=== PATIENT | female | born 1935 | race Caucasian/White ===

== ENCOUNTER 2018-09-05 16:14 | Outpatient (REF) | payer MEDICARE, MEDICAID, SELFPAY ==
[2018-09-05 18:41] LABS: HCT 40.5 % (36.0-46.0); HGB 12.9 g/dL (12.0-15.5); Mean Corp. HGB Concentration 31.9 g/dL (32.0-36.0); Mean Corpuscular Hemoglobin 28.7 pg (27.0-33.0); Mean Corpuscular Volume 90.2 fL (80-95); Mean Platelet Volume 10.1 fL (8.0-11.0); Platelet Count 271 x1000/uL (130-400); RBC 4.49 m/cumm (4.00-5.20); RBC Distribution Width 15.2 % (11.7-14.6); White Blood Cell Count 5.67 k/cumm (4.4-10.8)
[2018-09-05 18:48] LABS: Albumin 3.5 g/dL (3.4-5.0); BUN 24 mg/dL (7-18); CREATININE 0.82 mg/dL (0.55-1.02); Calcium 9.2 mg/dL (8.5-10.1); Chloride 104 mmol/L (98-107); Glucose 79 mg/dL (70-100); PHOSPHORUS 4.4 mg/dL (2.6-4.7); Potassium 4.4 mmol/L (3.5-5.1); Sodium 139 mmol/L (136-145)
[2018-09-10 08:37] LABS: 25-Hydroxy D Total 59 ng/mL; 25-Hydroxy D2 <4.0 ng/mL; 25-Hydroxy D3 59 ng/mL
== END 2018-09-05 16:34 ==
LOC: NCHCN 16:14
PROVIDERS: PCP Internal Medicine; Visit Provider Internal Medicine
DX: M65.4 Radial styloid tenosynovitis [de Quervain] (principal); M84.750A Atypical femoral fracture, unspecified, initial encounter for fracture; G62.9 Polyneuropathy, unspecified; M81.0 Age-related osteoporosis without current pathological fracture
CPT/HCPCS: 80069; 82306; 85027

== ENCOUNTER 2020-05-11 18:03 | Outpatient (REF) | payer MEDICARE, MEDICAID, SELFPAY ==
[2020-05-11 21:40] LABS: HCT 43.4 % (36.0-46.0); HGB 14.2 g/dL (11.2-15.7); MCH 31.5 pg (27.0-33.0); MCHC 32.7 % (32.0-36.0); MCV 96.2 fL (80-95); MPV 10.4 fL (8.0-11.0); Platelet Count 296 10^3/uL (130-400); RBC 4.51 10^6/uL (3.93-5.22); RDW 12.6 % (11.7-14.6); RDW-SD 44.8 fL
[2020-05-11 22:01] LABS: Albumin 3.8 g/dL (3.4-5.0); Anion Gap 8.6 mmol/L (3-11); BUN 25 mg/dL (7-18); CO2 27.4 mmol/L (21.0-32.0); CREATININE 0.97 mg/dL (0.55-1.02); Calcium 9.5 mg/dL (8.5-10.1); Chloride 106 mmol/L (98-107); Estimated GFR 54.71 (mL/min/1.73m2); Glucose 81 mg/dL (74-106); Magnesium 2.3 mg/dL (1.8-2.4); PHOSPHORUS 4.4 mg/dL (2.6-4.7); Potassium 4.5 mmol/L (3.5-5.1); Sodium 142 mmol/L (136-145); TSH 1.05 uIU/mL (0.36-3.74)
== END 2020-05-11 18:23 ==
LOC: NCHCN 18:03
PROVIDERS: PCP Internal Medicine; Visit Provider Internal Medicine
DX: G31.84 Mild cognitive impairment of uncertain or unknown etiology (principal); N32.81 Overactive bladder; M54.5 Low back pain; M21.069 Valgus deformity, not elsewhere classified, unspecified knee
CPT/HCPCS: 80069; 85027; 83735; 84443

== ENCOUNTER 2021-06-02 16:48 | Outpatient (REF) | payer MEDICARE, MEDICAID, SELFPAY | END 2021-06-02 16:49 | disposition home or self-care (01) | LOC: NCHCN 16:48 | PROVIDERS: PCP Internal Medicine; Visit Provider Internal Medicine | DX: R39.15 Urgency of urination (principal) | CPT/HCPCS: 87077; 87086; 87186 ==

== ENCOUNTER 2021-09-06 15:51 | Outpatient (REF) | payer MEDICARE, MEDICAID, SELFPAY | END 2021-09-06 15:52 | disposition home or self-care (01) | LOC: NCHCN 15:51 | PROVIDERS: PCP Internal Medicine; Visit Provider Physician Assistant | DX: R30.0 Dysuria (principal); N32.81 Overactive bladder | CPT/HCPCS: 87077; 87086; 87186 ==

== ENCOUNTER 2021-11-15 15:01 | Outpatient (REF) | payer MEDICARE, MEDICAID, SELFPAY ==
[2021-11-15 20:41] LABS: Abs Immature Grans 0.02 10^3/uL (0.0-0.06); Absolute Basophil Count 0.07 10^3/uL (0.0-0.2); Absolute Eosinophil Count 0.38 10^3/uL (0.0-0.7); Absolute Lymphocyte Count 1.39 10^3/uL (1.2-3.4); Absolute Monocyte Count 0.58 10^3/uL (0.1-0.8); Absolute Neutrophil Count 4.53 10^3/uL (1.2-6.7); Eosinophils % 5.5; HCT 43.6 % (36.0-46.0); HGB 14.3 g/dL (11.2-15.7); Immature Grans % 0.3; Lymphocytes % 19.9; MCHC 32.8 % (32.0-36.0); MCV 94.6 fL (80-95); MPV 11.2 fL (8.0-11.0); Monocytes % 8.3; Platelet Count 219 10^3/uL (130-400); RBC 4.61 10^6/uL (3.93-5.22); WBC 6.97 10^3/uL (4.4-10.8)
[2021-11-15 21:19] LABS: ALT 21 U/L (14-59); AST 17 U/L (15-37); Albumin 3.9 g/dL (3.4-5.0); Alkaline Phosphatase 117 U/L (46-116); BUN 30 mg/dL (7-18); Bilirubin, Total 0.3 mg/dL (0.2-1.0); CREATININE 1.1 mg/dL (0.55-1.02); Calcium 9.9 mg/dL (8.5-10.1); Chloride 108 mmol/L (98-107); Estimated GFR 47.21 (mL/min/1.73m2); Glucose 93 mg/dL (74-106); Potassium 4.6 mmol/L (3.5-5.1); Sodium 142 mmol/L (136-145); Total Protein 7.2 g/dL (6.4-8.2); Vitamin B12 1974 pg/mL (193-986)
[2021-11-16 07:22] LABS: Vitamin D 25 Total 127.1 ng/mL (30-100)
== END 2021-11-15 15:02 | disposition home or self-care (01) ==
LOC: NCHCN 15:01
PROVIDERS: PCP Internal Medicine; Visit Provider Internal Medicine
DX: R27.0 Ataxia, unspecified (principal); G31.84 Mild cognitive impairment of uncertain or unknown etiology; N32.81 Overactive bladder; E67.3 Hypervitaminosis D
CPT/HCPCS: 80053; 82306; 82607; 85025

== ENCOUNTER 2022-04-26 19:30 | Outpatient (REF) | payer MEDICARE, MEDICAID, SELFPAY ==
[2022-04-26 19:04] LABS: Abs Immature Grans 0.01 10^3/uL (0.0-0.06); Absolute Basophil Count 0.08 10^3/uL (0.0-0.2); Absolute Eosinophil Count 0.38 10^3/uL (0.0-0.7); Absolute Lymphocyte Count 1.06 10^3/uL (1.2-3.4); Absolute Neutrophil Count 3.14 10^3/uL (1.2-6.7); Basophils % 1.5; Eosinophils % 7.4; HCT 44.1 % (36.0-46.0); HGB 14.9 g/dL (11.2-15.7); Immature Grans % 0.2; Lymphocytes % 20.5; MCH 32.6 pg (27.0-33.0); MCHC 33.8 % (32.0-36.0); MCV 97 fL (80-95); MPV 9.9 fL (8.0-11.0); Monocytes % 9.7; Neutrophils % 60.7; Platelet Count 304 10^3/uL (130-400); RBC 4.57 10^6/uL (3.93-5.22); RDW 12.3 % (11.7-14.6); RDW-SD 43.5 fL; WBC 5.17 10^3/uL (4.4-10.8)
[2022-04-26 19:26] LABS: ALT 22 U/L (14-59); AST 16 U/L (15-37); Albumin 3.7 g/dL (3.4-5.0); Alkaline Phosphatase 106 U/L (46-116); Anion Gap 6.5 mmol/L (3-11); BUN 26 mg/dL (7-18); Bilirubin, Total 0.4 mg/dL (0.2-1.0); CO2 29.5 mmol/L (21.0-32.0); CREATININE 0.9 mg/dL (0.55-1.02); Calcium 9.7 mg/dL (8.5-10.1); Chloride 106 mmol/L (98-107); Estimated GFR 62.26 (mL/min/1.73m2); Glucose 88 mg/dL (74-106); Potassium 4.8 mmol/L (3.5-5.1); Sodium 142 mmol/L (136-145); TSH (W/Ref FT4) 0.93 uIU/mL (0.36-3.74)
== END 2022-04-26 19:31 | disposition home or self-care (01) ==
LOC: NCHCN 19:30
PROVIDERS: PCP Internal Medicine; Visit Provider Physician Assistant
DX: R06.09 Other forms of dyspnea (principal); R53.83 Other fatigue; E78.5 Hyperlipidemia, unspecified
CPT/HCPCS: 80053; 84443; 85025

== ENCOUNTER 2023-03-22 18:12 | Outpatient (REF) | payer MEDICARE, MEDICAID, SELFPAY ==
--- OUTSIDE RECORDS SUMMARY | 2023-03-22 18:14 | XMS_ITS | Continuity of Care Document ---
Author Name Unknown Organization [facility] Address [address] [place] [address] Care Team Providers Care Door To Door Selling Agent Name Role Phone [facility], Adalid Gaspar Primary Care Physician Encounter [facility] Date(s): 09/05/22 - 09/05/22 [facility] [address] [place] [address] Encounter Diagnosis Pain in shoulder(Discharge Diagnosis) - 09/05/22 Pain in hip(Discharge Diagnosis) - 09/05/22 Cardiomyopathy(Discharge Diagnosis) - 09/05/22 HTN (hypertension)(Discharge Diagnosis) - 09/05/22 Shoulder pain(Discharge Diagnosis) - 09/05/22 Discharge Disposition: Home or Self Care Attending Physician: Kathy Freedman DO Allergies, Adverse Reactions, Alerts Substance Reaction Severity Status tetanus-diphth toxoids (Td) adult/adol Un known Active Functional Status 09/05/22 Other exposure to Infectious Disease Non e Medications aspirin 81 mg oral tablet, chewable 81 mg = 1 tab, Oral, Daily, # 30 tab, 0 Refill(s), [facility]acy: [facility], 165, cm, 07/25/22 14:26:00 EST, Height/Length Dosing, 57.2, kg, 07/25/22 14:26:00 EST, Weight Dosing Start Date: 08/02/22 Status: Ordered atorvastatin 40 mg oral tablet 40 mg = 1 tab, Oral, With Evening Meal, # 30 tab, 0 Refill(s), Pharmacy: [facility], 165, cm, 07/25/22 14:26:00 EST, Height/Length Dosing, 57.2, kg, 07/25/22 14:26:00 EST, Weight Dosing Start Date: 08/02/22 Status: Ordered losartan 25 mg oral tablet 25 mg = 1 tab, Oral, every evening, 0 Refill(s) Start Date: 07/23/22 Status: Ordered metoprolol succinate 25 mg oral tablet, extended release 25 mg = 1 tab, Oral, Daily, # 30 tab, 0 Refill(s), Pharmacy: [facility], 165, cm, 07/25/22 14:26:00 EST, Height/Length Dosing, 57.2, kg, 07/25/22 14:26:00 EST, Weight Dosing Start Date: 08/02/22 Status: Ordered Minden-3 Fish Oil 1 cap, Oral, Daily, 0 Refill(s) Start Date: 07/26/22 Status: Ordered PreserVision AREDS 2 oral capsule 1 cap, Oral, BID, # 60 cap, 0 Refill(s) Start Date: 07/26/22 Status: Ordered Ventolin HFA 90 mcg/inh inhalation aerosol 2 puffs, Inhale, every 5 hr, PRN as needed for wheezing, 0 Refill(s) Start Date: 07/26/22 Status: Ordered Vitamin D3 1000 intl units oral tablet 62.5 mcg = 2.5 tab, Oral, Daily, # 30 tab, 0 Refill(s) Start Date: 07/26/22 Status: Ordered Problem List Condition Confirmation Course Effective Dates Status Health St atus Informant Unspecified dementia, mild, with anxiety Confirmed Active NSTEMI (non-ST elevated myocardial infarction) Confirmed Active Vital Signs Most recent to oldest [Reference Range]: 1 Peripheral Pulse Rate [60-100 bpm] 93 bp m (09/05/22 1:16 PM) Blood Pressure [90-140/60-90 mmHg] 137/6 5mmHg (09/05/22 1:16 PM) Social History Social History Type Response Tobacco Former tobacco user Tobacco Use:. Sex Female Cardiac catheterization study * Event Display: Electro Mechanic US Heart * Event Display: Echo Report Physician Outpatient Note * Kathy Freedman DO: PERFORM Event Display: Office Clinic Note Physician Authored Date: [id number] PABLO ZIMMER :1935 Age:87 years Sex:Female Visit Date:09/05/2022 Primary Care Physician: Mirna [facility], Adalid Gaspar MD Chief Complaint Patient is here to follow up. History of Present Illness Patient is 87 year old female that was seen in the ER.?? Patient had a LHC at [facility] and showed no stents needed.?? 3 days later patient had a stroke.?? Now patient is in a [facility] for [facility].?? Prior to this patient was independent living.?? Patient is unable to move her left arm because she fell out of bed at [facility].?? Patient has not been evaluated for this fall.?? Review of Systems Constitutional:?No??fevers,?No??chills,?No??sweats Eye:?No??recent visual problems ENT:?No??ear pain,?No??nasal congestion,?No??sore throat Respiratory:?No??shortness of breath,?No??cough Cardiovascular:?No??Chest pain,?No??palpitations,?No??syncope Gastrointestinal:?Nonausea,?No??vomiting,?No??diarrhea Genitourinary:?No??hematuria Behzad/Lymph:?No??bruising tendency,?No??swollen lymph glands Endocrine:?No??excessive thirst,??No??excessive hunger Musculoskeletal:??Positive for??back pain,??No??neck pain,??No??joint pain,??No??muscle pain,??Positive for??decreased range of motion LUE Integumentary:?No??rash,?No??pruritus,?No??abrasions Neurologic: Alert & oriented X 4 Psychiatric:?No??anxiety,?No??depression Physical Exam Vitals & Measurements HR:??93??(Peripheral)?? BP:??137/65?? SpO2:??96%?? General: Alert and oriented, well nourished,?No??acute distress Eye: PERRL, EOMI,?Normal??conjunctiva HENT: Normocephalic, clear tympanic membranes,?Normal?? hearing, moist oral mucosa,?No??scleral icterus,?No??sinus tenderness Neck: Supple, non-tender,?No??carotid bruits,?No??JVD,?No??lymphadenopathy Lungs: Clear to auscultation and percussion,?Non-labored?? respiration Heart:?Normal?? rate,?Regular??rhythm,?No??murmur,?No??gallop,?No??edema Breast:?No??lumps,?No??bumps,?No??scars,?Normal?? nipples Abdomen: Soft, non-tender, non-distended,?Normal?? bowel sounds,?No??masses Musculoskeletal:?Abnormal?? range of motion and strength,?No??tenderness,?Positive for??swelling LUE Skin: Skin is warm, dry and pink,?No??rashes,?No??lesions Neurologic: Awake, alert and oriented X4, CN II-XII intact Psychiatric: Cooperative, appropriate mood and affect Assessment/Plan 1.??Pain in shoulder??M25.519 1. xray shoulder Ordered: XR Shoulder Complete 2+ Views Left, 09/05/22, Routine, Reason: fall, Transport Mode: Ambulatory, Hip pain Shoulder pain, Exam to be performed outside organization? ?? 2.??Pain in hip??M25.559 1. xray hip left Ordered: XR Hip 1 View w/ AP Pelvis Left, 09/05/22, Routine, Reason: fall, Transport Mode: Ambulatory, Hip pain, ABN Status: Not Required, Exam to be performed outside organization? XR Shoulder Complete 2+ Views Left, 09/05/22, Routine, Reason: fall, Transport Mode: Ambulatory, Hip pain Shoulder pain, Exam to be performed outside organization? ?? 3.??Cardiomyopathy??I42.9 1. continue present medicines ?? 4.??HTN (hypertension)??I10 1. continue present medicines ?? Future Orders XR Hip 1 View w/ AP Pelvis Left, 09/05/22, Routine, Reason: fall, Transport Mode: Ambulatory, Hip pain, ABN Status: Not Required, Exam to be performed outside organization? XR Shoulder Complete 2+ Views Left, 09/05/22, Routine, Reason: fall, Transport Mode: Ambulatory, Hip pain Shoulder pain, Exam to be performed outside organization? Problem List/Past Medical History Ongoing NSTEMI (non-ST elevated myocardial infarction) Unspecified dementia, mild, with anxiety Historical No qualifying data Medications aspirin 81 mg oral tablet, chewable, 81 mg= 1 tab, Oral, Daily atorvastatin 40 mg oral tablet, 40 mg= 1 tab, Oral, With Evening Meal losartan 25 mg oral tablet, 25 mg= 1 tab, Oral, every evening metoprolol succinate 25 mg oral tablet, extended release, 25 mg= 1 tab, Oral, Daily Minden-3 Fish Oil, 1 cap, Oral, Daily PreserVision AREDS 2 oral capsule, 1 cap, Oral, BID Ventolin HFA 90 mcg/inh inhalation aerosol, 2 puffs, Inhale, every 5 hr, PRN Vitamin D3 1000 intl units oral tablet, 62.5 mcg= 2.5 tab, Oral, Daily Allergies tetanus-diphth toxoids (Td) adult/adol Social History Alcohol Current, Wine, Daily Electronic Cigarette/Vaping Electronic Cigarette Use: Never. Tobacco Former tobacco user Tobacco Use:. Electronically Signed on 09/05/22 02:59 PM Kathy Freedman DO Discharge summary * Event Display: Discharge Summary Patient Care team information Personnel Name: Mirna SHEA, Adalid Gaspar MD Address: Address: [address] [address]- [place]
--- OUTSIDE RECORDS SUMMARY | 2023-03-22 18:14 | XMS_ITS | Continuity of Care Document ---
Author Name Unknown Organization [facility] Address [address] [place] [address] Care Team Providers Care Open Hearth Helper Name Role Phone Primeau HCAdalid Primary Care Physician Encounter [facility] Date(s): 10/18/22 - 10/18/22 [facility] [address] [place] [address] Encounter Diagnosis Unspecified dementia, mild, with anxiety(Discharge Diagnosis) - 10/18/22 Hyperlipidemia(Discharge Diagnosis) - 10/18/22 Hypertension(Discharge Diagnosis) - 10/18/22 Discharge Disposition: Home or Self Care Attending Physician: Kathy Freedman DO Allergies, Adverse Reactions, Alerts Substance Reaction Severity Status tetanus-diphth toxoids (Td) adult/adol Un known Active Medications aspirin 81 mg oral tablet, chewable 81 mg = 1 tab, Oral, Daily, # 90 tab, 3 Refill(s), Pharmacy: [facility], 165, cm, 07/25/22 14:26:00 EST, Height/Length Dosing, 57.2, kg, 07/25/22 14:26:00 EST, Weight Dosing Start Date: 10/18/22 Status: Ordered atorvastatin 40 mg oral tablet 40 mg = 1 tab, Oral, With Evening Meal, # 90 tab, 3 Refill(s), Pharmacy: [facility], 165, cm, 07/25/22 14:26:00 EST, Height/Length Dosing, 57.2, kg, 07/25/22 14:26:00 EST, Weight Dosing Start Date: 10/18/22 Status: Ordered losartan 25 mg oral tablet 25 mg = 1 tab, Oral, Daily, # 90 tab, 3 Refill(s), Pharmacy: [facility], 165, cm, 07/25/22 14:26:00 EST, Height/Length Dosing, 57.2, kg, 07/25/22 14:26:00 EST, Weight Dosing Start Date: 10/18/22 Status: Ordered metoprolol succinate 25 mg oral tablet, extended release 25 mg = 1 tab, Oral, BID, # 180 tab, 3 Refill(s), Pharmacy: [facility], 165, cm, 07/25/22 14:26:00 EST, Height/Length Dosing, 57.2, kg, 07/25/22 14:26:00 EST, Weight Dosing Start Date: 10/18/22 Status: Ordered Raven-3 Fish Oil 1 cap, Oral, Daily, 0 [...] Range]: 1 Peripheral Pulse Rate [60-100 bpm] 73 bp m (10/18/22 10:46 AM) Blood Pressure [90-140/60-90 mmHg] 128/6 6mmHg (10/18/22 10:46 AM) Social History Social History Type Response Tobacco Former tobacco user Tobacco Use:. Sex Female Physician Outpatient Note * Kathy Freedman DO: PERFORM Event Display: Office Clinic Note Physician Authored Date: [id number] PABLO ZIMMER :1935 Age:87 years Sex:Female Visit Date:10/18/2022 Primary Care Physician: Mirna [facility], Adalid Gaspar MD Chief Complaint Patient is here for follow up evaluation. History of Present Illness Patient is here for follow up evaluation.?? Patient is only complaining of back pain.?? Patient is still in the shelter and is frustrated with that.?? Review of Systems Constitutional:?No??fevers,?No??chills,?No??sweats, + back pain Eye:?No??recent visual problems ENT:?No??ear pain,?No??nasal congestion,?No??sore throat Respiratory:?No??shortness of breath,?No??cough Cardiovascular:?No??Chest pain,?No??palpitations,?No??syncope Gastrointestinal:?Nonausea,?No??vomiting,?No??diarrhea Genitourinary:?No??hematuria Behzad/Lymph:?No??bruising tendency,?No??swollen lymph glands Endocrine:?No??excessive thirst,??No??excessive hunger Musculoskeletal:??No??back pain,??No??neck pain,??No??joint pain,??No??muscle pain,??No??decreased range of motion Integumentary:?No??rash,?No??pruritus,?No??abrasions Neurologic: Alert & oriented X 4 Psychiatric:?No??anxiety,?No??depression Physical Exam Vitals & Measurements HR:??73??(Peripheral)?? BP:??128/66?? SpO2:??95%?? General: Alert and oriented, well nourished,?No??acute distress Eye: PERRL, EOMI,?Normal??conjunctiva HENT: Normocephalic, clear tympanic membranes,?Normal?? hearing, moist oral mucosa,?No??scleral icterus,?No??sinus tenderness Neck: Supple, non-tender,?No??carotid bruits,?No??JVD,?No??lymphadenopathy Lungs:??Clear to auscultation?? Respiration:??Non-Labored Heart:?Normal?? rate,?Regular??rhythm,?No??murmur,?No??gallop,?No??edema Breast:?No??lumps,?No??bumps,?No??scars,?Normal?? nipples Abdomen: Soft, non-tender, non-distended,?Normal?? bowel sounds,?No??masses Musculoskeletal:?Normal?? range of motion and strength,?No??tenderness,?No??swelling Skin: Skin is warm, dry and pink,?No??rashes,?No??lesions Neurologic: Awake, alert and oriented X4, CN II-XII intact Psychiatric: Cooperative, appropriate mood and affect Assessment/Plan 1.??Unspecified dementia, mild, with anxiety??F03.A4 1. continue present medicines 2.??Hyperlipidemia??E78.5 1. continue present medicines 3.??Hypertension??I10 1. continue present medicines 2. follow up with cardiology in 6 months or sooner if needed Orders: aspirin 81 mg oral tablet, chewable, 81 mg = 1 tab, Oral, Daily, # 90 tab, 3 Refill(s), Pharmacy: [facility], 165, cm, 07/25/22 14:26:00 EST, Height/Length Dosing, 57.2, kg, 07/25/22 14:26:00 EST, Weight Dosing atorvastatin 40 mg oral tablet, 40 mg = 1 tab, Oral, With Evening Meal, # 90 tab, 3 Refill(s), Pharmacy: [facility], 165, cm, 07/25/22 14:26:00 EST, Height/Length Dosing, 57.2, kg, 07/25/22 14:26:00 EST, Weight Dosing losartan 25 mg oral tablet, 25 mg = 1 tab, Oral, Daily, # 90 tab, 3 Refill(s), Pharmacy: [facility], 165, cm, 07/25/22 14:26:00 EST, Height/Length Dosing, 57.2, kg, 07/25/22 14:26:00 EST, Weight Dosing metoprolol succinate 25 mg oral tablet, extended release, 25 mg = 1 tab, Oral, BID, # 180 tab, 3 Refill(s), Pharmacy: [facility], 165, cm, 07/25/22 14:26:00 EST, Height/Length Dosing, 57.2, kg, 07/25/22 14:26:00 EST, Weight Dosing Problem List/Past Medical History Ongoing NSTEMI (non-ST elevated myocardial infarction) Unspecified dementia, mild, with anxiety Historical No qualifying data Medications aspirin 81 mg oral tablet, chewable, 81 mg= 1 tab, Oral, Daily, 3 refills atorvastatin 40 mg oral tablet, 40 mg= 1 tab, Oral, With Evening Meal, 3 refills losartan 25 mg oral tablet, 25 mg= 1 tab, Oral, Daily, 3 refills metoprolol succinate 25 mg oral tablet, extended release, 25 mg= 1 tab, Oral, BID, 3 refills Raven-3 Fish Oil, 1 cap, Oral, Daily PreserVision [...] tobacco user Tobacco Use:. Electronically Signed on 10/18/22 11:11 AM Kathy Freedman DO Patient Care team information Care Team Personnel Name: Adalid Mckay MD Position: No Access Member Role: Primary Care Physician Address: Address: [address] Care Team Related Persons Name: KIMO MOISE Address: Home Name: SHONNA E[address]ON Address: Home Name: ABHISHEK JACKSON Name: BABITA ROGER Address: Home
--- OUTSIDE RECORDS SUMMARY | 2023-03-22 18:14 | XMS_ITS | Continuity of Care Document ---
Author Name Unknown Organization [facility] Address [address] [place] [address] Care Team Providers Care Sweeping Compound Blender Name Role Phone [facility], Adalid Gaspar Primary Care Physician Encounter [facility] Date(s): 09/05/22 - 09/05/[address] [address] Encounter Diagnosis Hip pain(Discharge Diagnosis) - 09/05/22 Shoulder pain(Discharge Diagnosis) - 09/05/22 Pain in unspecified hip(Discharge Diagnosis) - 09/05/22 Discharge Disposition: Home or Self Care Attending Physician: Kathy Freedman DO Admitting Physician: Kathy Freedman DO Referring Physician: Kathy Freedman DO Allergies, Adverse Reactions, [...] Daily, # 30 tab, 0 Refill(s), Pharmacy: [facility], 165, cm, 07/25/22 14:26:00 EST, Height/Length Dosing, 57.2, kg, 07/25/22 14:26:00 EST, Weight Dosing Start Date: 08/02/22 Status: Ordered Suitland-3 Fish Oil 1 cap, Oral, Daily, 0 [...] NSTEMI (non-ST elevated myocardial infarction) Confirmed Active Social History Social History Type Response Tobacco Former tobacco user Tobacco Use:. Sex Female Patient Care team information Personnel Name: Mirna SHEA, Adalid Gaspar MD Address: Address: [id number] [place] [address]
--- OUTSIDE RECORDS SUMMARY | 2023-03-22 18:14 | XMS_ITS | Continuity of Care Document ---
Author Name Unknown Organization [facility] Address [address] [place] [address] Care Team Providers Care Road Passenger Firer Name Role Phone Adalid Mckay Primary Care Physician Encounter [facility] Date(s): 05/17/22 - 05/17/[address] [address] Discharge Disposition: Home or Self Care Attending Physician: Kathy Freedman DO Admitting Physician: Kaleigh Sequeira Referring Physician: Kaleigh Sequeira Allergies, Adverse Reactions, Alerts Substance Reaction Severity Status tetanus-diphth toxoids (Td) adult/adol Un known Active Social History Social History Type Response Sex Female Patient Care team information Personnel Name: Adalid Mckay MD Address: Address: [facility] [address] [place], [place] [address]
--- OUTSIDE RECORDS SUMMARY | 2023-03-22 18:14 | XMS_ITS | Continuity of Care Document ---
Author Name Unknown Organization [facility] Address [address] [place] [address] Care Team Providers Care Table Games Floor Supervisor Name Role Phone [facility], Adalid Gaspar Primary Care Physician Encounter [facility] Date(s): 10/24/22 - 10/24/22 [facility] [address] [place] [address] Discharge Disposition: Home or Self Care Attending Physician: Giselle Hodgson MD Admitting Physician: Giselle Hodgson MD Referring Physician: Giselle Hodgson MD Allergies, Adverse Reactions, Alerts Substance Reaction Severity [...] BID, # 180 tab, 3 Refill(s), Pharmacy: [facility], 165, cm, 07/25/22 14:26:00 EST, Height/Length Dosing, 57.2, kg, 07/25/22 14:26:00 EST, Weight Dosing Start Date: 10/18/22 Status: Ordered Pinson-3 Fish Oil 1 cap, Oral, Daily, 0 [...] NSTEMI (non-ST elevated myocardial infarction) Confirmed Active Results Laboratory List Name Date Clostridium Difficile 10/24/22 Most recent to oldest [Reference Range]: 1 Clostridium Difficile Toxin [Negative] N egative (10/24/22 11:17 AM) Social History Social History Type Response Tobacco Former tobacco user Tobacco Use:. Sex Female Patient Care team information Care Team Personnel Name: Adalid Mckay MD Position: No Access Member Role: Primary Care Physician Address: Address: [id number] [place] [address] Care Team Related Persons Name: KIMO MOISE Address: Home Name: SHONNA EASTON Address: Home Name: ABHISHEK JACKSON Name: BABITA ROGER Address: Home
--- OUTSIDE RECORDS SUMMARY | 2023-03-22 18:14 | XMS_ITS | Continuity of Care Document ---
Author Name Unknown Organization [facility] Address [address] [place] [address] Care Team Providers Care Architectural Project Captain Name Role Phone [place] HCAdalid Primary Care Physician Encounter NCTY_HI Date(s): 07/25/22 - 08/02/22 [facility] [address] [place] [address] Encounter Diagnosis Acute ischemic right MCA stroke(Discharge Diagnosis) - 07/26/22 UTI (urinary tract infection)(Discharge Diagnosis) - 07/26/22 Atrial fibrillation with RVR(Discharge Diagnosis) - 07/26/22 Febrile(Discharge Diagnosis) - 07/26/22 NSTEMI (non-ST elevated myocardial infarction)(Discharge Diagnosis) - 07/26/22 Unspecified dementia, mild, with anxiety(Discharge Diagnosis) - 07/26/22 Cerebral infarction due to unspecified occlusion or stenosis of right middle cerebral artery(Final) - Non-ST elevation (NSTEMI) myocardial infarction(Final) - Urinary tract infection, site not specified(Final) - Rhabdomyolysis(Final) - Unspecified atrial fibrillation(Final) - Fever, unspecified(Final) - Encounter for administrative examinations, unspecified(Final) - Unspecified dementia, mild, with anxiety(Final) - [facility]charge Dis[facility] Attending Physician: Toby Cao DO Admitting Physician: Evie Baker NURSE ANESTHETIST Allergies, Adverse Reactions, Alerts Substance Reaction Severity Status tetanus-diphth toxoids (Td) adult/adol Un known Active Assessment and Plan Future Appointments Functional Status 08/02/22 Breakfast Percent 10 08/01/22 Personal Care Provided Diaper/Brief sandoval ged, Linen change, Vani care, Underpad change 07/31/22 Activity Status ADL Bed in chair positio n 07/29/22 Dinner Percent 25 07/29/22 Lunch Percent 75 07/27/22 Positioning/Pressure Reducing Devices Fo am wedge, Pillow Orthopedic/Preventive Devices Sling 07/27/22 Living Environment Living Situation: Ho me independently Current Home Treatments: Home Devices/Equipment Professional Skilled Services: Special Services and Community Resources: Sensory Deficits: Hearing deficit, left ear, Hearing deficit, right ear Performed by: Heather Zimmer07/26/22 08:06:00 Living Situation: Home independently Current Home Treatments: Home Devices/Equipment Professional Skilled Services: Special Services and Community Resources: Sensory Deficits: Performed by: Sunshine North07/25/22 15:21:00 Lives In Multilevel home Lives With Alone Living Situation Home independently Patient's Responsibilities Driving, business management manager, Health and wellness, Housework, Laundry, Meal preparation, Personal ADL, Shopping, Social participation Home Equipment Pulse oximeter, Walker, Other: BP Machine Number of Stairs Outside 2 07/26/22 Anti-Embolism Device Activity: Applied Anti-Embolism Site Condition: No complic ations 07/25/22 Family Member Travel History No recent t ravel Recent Travel History No recent travel Other exposure to Infectious Disease Non e [...] Weight Dosing Start Date: 08/02/22 Status: Ordered Hampton-3 Fish Oil 1 cap, Oral, Daily, 0 [...] 0 Refill(s) Start Date: 07/26/22 Status: Ordered Mental Status 07/27/22 Eye Opening Response Guera Spontaneous ly Best Verbal Response Dwarf Oriented Best Motor Response Guera Obeys comman ds Guera Coma Score 15 Problem List Condition Confirmation Course Effective Dates Status Health St atus Informant Unspecified dementia, mild, with anxiety Confirmed Active NSTEMI (non-ST elevated myocardial infarction) Confirmed Active Results Laboratory List Name Date SARS-CoV-2 (COVID-19) RNA (ID Now) 3 Automated Diff 07/27/22 Basic Metabolic Panel 07/27/22 CBC w/ Diff 07/27/22 Troponin-I 07/26/22 Automated Diff 07/26/22 Basic Metabolic Panel 07/26/22 CBC w/ Diff 07/26/22 Creatine Kinase (CK) 07/26/22 TSH w/ Rflx to Free T4 07/26/22 Magnesium Level 07/26/22 Troponin-I 07/26/22 Urinalysis Microscopic 07/25/22 Urinalysis with Micro if Indicated and C ulture if Indicated 07/25/22 Creatine Kinase 07/25/22 Troponin-I 07/25/22 SARS-CoV-2 (COVID-19) RNA (ID Now) 07/25 Glucose POCT 07/25/22 Glucose POCT 07/25/22 CBC w/o Diff 07/25/22 Comprehensive Metabolic Panel (CMP) 06/29 03/19 PT/ INR 07/25/22 PTT 07/25/22 Most recent to oldest [Reference Range]: 1 2 3 WBC [5.0-10.0 x10^3/mcL] 7.6 x10^3/mcL (07/27/22 6:45 AM) 10.2 x10^3/mcL *HI* (07/26/22 7:00 AM) 10.4 x10^3/mcL *HI* (07/25/22 11:00 AM) RBC [4.1-5.3 x10^6/mcL] 3.8 x10^6/mcL *LOW* (07/27/22 6:45 AM) 3.8 x10^6/mcL *LOW* (07/26/22 7:00 AM) 4.5 x10^6/mcL (07/25/22 11:00 AM) Neutro Auto [40.0-75.0 %] 65.5 % (07/27/22 6:45 AM) 72.5 % (07/26/22 7:00 AM) Lymph Auto [20.0-50.0 %] 19.3 % *LOW* (07/27/22 6:45 AM) 15.3 % *LOW* (07/26/22 7:00 AM) Greer Auto [2.0-15.0 %] 8.3 % (07/27/22 6:45 AM) 11.4 % (07/26/22 7:00 AM) Basophil Auto [0.0-1.0 %] 0.7 % (07/27/22 6:45 AM) 0.3 % (07/26/22 7:00 AM) Prothrombin Time [9.0-11.0 seconds] 9.8 seconds (07/25/22 11:00 AM) INR 1.0 *NA* (07/25/22 11:00 AM) BUN [7-18 mg/dL] 28 mg/dL *HI* (07/27/22 6:45 AM) 29 mg/dL *HI* (07/26/22 7:00 AM) 28 mg/dL *HI* (07/25/22 11:00 AM) Glucose POC [74-106 mg/dL] 131 mg/dL *HI* (07/25/22 11:03 AM) 131 mg/dL *HI* (07/25/22 11:01 AM) UA Color Yellow (07/25/22 8:20 PM) UA WBC [0-3] 0-3 (07/25/22 8:20 PM) Glucose Level [74-106 mg/dL] 93 mg/dL (07/27/22 6:45 AM) 108 mg/dL *HI* (07/26/22 7:00 AM) 126 mg/dL *HI* (07/25/22 11:00 AM) Potassium Level [3.5-5.1 mmol/L] 3.8 mmol/L (07/27/22 6:45 AM) 4.0 mmol/L (07/26/22 7:00 AM) 4.6 mmol/L (07/25/22 11:00 AM) MCV [80.0-96.0] 100.0 *HI* (07/27/22 6:45 AM) 99.5 *HI* (07/26/22 7:00 AM) 98.0 *HI* (07/25/22 11:00 AM) UA Urobilinogen Normal (07/25/22 8:20 PM) UA Bili [Negative] Negative (07/25/22 8:20 PM) UA Ketones 2+ *ABN* (07/25/22 8:20 PM) AST [15-37 unit/L] 24 unit/L (07/25/22 11:00 AM) ALT [14-59 unit/L] 16 unit/L (07/25/22 11:00 AM) MCHC [31.0-35.0 g/dL] 31.9 g/dL (07/27/22 6:45 AM) 32.5 g/dL (07/26/22 7:00 AM) 33.0 g/dL (07/25/22 11:00 AM) Troponin-I [0.0-51.4 pg/mL] 456.0 pg/mL 1 *CRIT* (07/26/22 9:22 AM) 676.1 pg/mL 2 *CRIT* (07/26/22 3:12 AM) 795.2 pg/mL 3 *CRIT* (07/25/22 7:50 PM) Sodium Level [136-145 mmol/L] 140 mmol/L (07/27/22 6:45 AM) 141 mmol/L (07/26/22 7:00 AM) 140 mmol/L (07/25/22 11:00 AM) UA RBC [0-2] 0-2 (07/25/22 8:20 PM) UA Leuk Est Negative (07/25/22 8:20 PM) UA Nitrite Positive *ABN* (07/25/22 8:20 PM) UA Glucose [Negative] Negative (07/25/22 8:20 PM) Hct [37.0-47.0 %] 37.6 % (07/27/22 6:45 AM) 38.1 % (07/26/22 7:00 AM) 43.7 % (07/25/22 11:00 AM) UA Bacteria Moderate /HPF *ABN* (07/25/22 8:20 PM) Partial Thromboplastin Time [22-35 seconds] 25 seconds (07/25/22 11:00 AM) Calcium Level [8.5-10.1 mg/dL] 8.1 mg/dL *LOW* (07/27/22 6:45 AM) 8.4 mg/dL *LOW* (07/26/22 7:00 AM) 9.6 mg/dL (07/25/22 11:00 AM) Albumin Level [3.4-5.0 g/dL] 3.4 g/dL (07/25/22 11:00 AM) Protein Total [6.4-8.2 g/dL] 7.6 g/dL (07/25/22 11:00 AM) UA Protein 1+ *ABN* (07/25/22 8:20 PM) MCH [26.0-32.0 pg] 31.9 pg (07/27/22 6:45 AM) 32.4 pg *HI* (07/26/22 7:00 AM) 32.3 pg *HI* (07/25/22 11:00 AM) Magnesium Level [1.8-2.4 mg/dL] 2.0 mg/dL (07/26/22 3:26 AM) Neutro Absolute 5.0 x10^3/mcL *NA* (07/27/22 6:45 AM) 7.4 x10^3/mcL *NA* (07/26/22 7:00 AM) Bilirubin Total [0.2-1.0 mg/dL] 0.7 mg/dL (07/25/22 11:00 AM) Hgb [12.0-16.0 g/dL] 12.0 g/dL (07/27/22 6:45 AM) 12.4 g/dL (07/26/22 7:00 AM) 14.4 g/dL (07/25/22 11:00 AM) Alk Phos [46-146 unit/L] 91 unit/L (07/25/22 11:00 AM) UA Blood 2+ *ABN* (07/25/22 8:20 PM) UA Mucous None Seen /HPF (07/25/22 8:20 PM) UA Spec Grav 1.020 (07/25/22 8:20 PM) Platelets [130-450 x10^3/mcL] 205 x10^3/mcL (07/27/22 6:45 AM) 221 x10^3/mcL (07/26/22 7:00 AM) 265 x10^3/mcL (07/25/22 11:00 AM) CO2 [21-32 mmol/L] 23 mmol/L (07/27/22 6:45 AM) 24 mmol/L (07/26/22 7:00 AM) 25 mmol/L (07/25/22 11:00 AM) UA Squam Epithelial [None Seen] Rare (07/25/22 8:20 PM) TSH [0.358-3.740 mcIntlUnit/mL] 0.450 mcIntlUnit/mL (07/26/22 7:00 AM) UA pH 5.5 (07/25/22 8:20 PM) eGFR Non-AA [>=60] 54 *LOW* (07/27/22 6:45 AM) 48 *LOW* (07/26/22 7:00 AM) 48 *LOW* (07/25/22 11:00 AM) eGFR AA [>=60] 54 *LOW* (07/27/22 6:45 AM) 48 *LOW* (07/26/22 7:00 AM) 48 *LOW* (07/25/22 11:00 AM) UA Appear Clear (07/25/22 8:20 PM) Chloride Level [98-107 mmol/L] 110 mmol/L *HI* (07/27/22 6:45 AM) 108 mmol/L *HI* (07/26/22 7:00 AM) 105 mmol/L (07/25/22 11:00 AM) RDW-CV [11.7-17.0 %] 12.7 % (07/27/22 6:45 AM) 12.6 % (07/26/22 7:00 AM) 12.3 % (07/25/22 11:00 AM) Imm Gran Auto [0.0-0.9 %] 0.4 % (07/27/22 6:45 AM) 0.4 % (07/26/22 7:00 AM) UA Culture Ind?. Indicated (07/25/22 8:20 PM) Creatinine Level [0.55-1.02 mg/dL] 1.01 mg/dL (07/27/22 6:45 AM) 1.12 mg/dL *HI* (07/26/22 7:00 AM) 1.11 mg/dL *HI* (07/25/22 11:00 AM) SARS-CoV-2 (COVID-19) RNA (ID Now) [Not Detected] Not Detected (08/01/22 9:49 AM) Not Detected (07/25/22 4:38 PM) Eos, Auto [1.0-6.0 %] 5.8 % (07/27/22 6:45 AM) 0.1 % *LOW* (07/26/22 7:00 AM) CK [26-192 unit/L] 323 unit/L *HI* (07/26/22 7:00 AM) 311 unit/L *HI* (07/25/22 7:50 PM) 1Result Comment: Called to Curry Marshall at 07/26/2022 10:01:13 EST read back done. 2Result Comment: Called to DELIA Pedersen at _07/26/2022 03:42:18 EST 3Result Comment: Called to DELIA Jackson at _07/25/2022 20:36:26 EST Orders for Microbiology Reports Name Date Blood Culture 07/26/22 Blood Culture 07/26/22 Urine Culture 07/25/22 Microbiology Reports TEST:Blood Culture STATUS:Auth (Verified) BODY SITE: SOURCE:Peripheral Blood COLLECTED DATE/TIME:07/26/22 9:23 AM FINAL REPORT No growth at 5 days. TEST:Blood Culture STATUS:Auth (Verified) BODY SITE: SOURCE:Peripheral Blood COLLECTED DATE/TIME:07/26/22 9:23 AM FINAL REPORT No growth at 5 days. TEST:Urine Culture STATUS:Auth (Verified) BODY SITE: SOURCE:Urine COLLECTED DATE/TIME:07/25/22 8:20 PM FINAL REPORT >100,000 cfu/ml Escherichia coli ORGANISM:Escherichia coli Vital Signs Most recent to oldest [Reference Range]: 1 2 3 Temperature Temporal Artery [36-38 Deg C] 36.7 Deg C (08/02/22 10:27 AM) 36.9 Deg C (08/02/22 6:35 AM) 36.7 Deg C (08/02/22 2:16 AM) Temperature Temporal Artery (DegF) [97.3-100 Deg F] 98.24 Deg F (07/30/22 4:27 AM) 100.22 Deg F *HI* (07/25/22 10:50 PM) 101.66 Deg F *HI* (07/25/22 5:46 PM) Peripheral Pulse Rate [60-100 bpm] 90 bpm (08/02/22 10:27 AM) 87 bpm (08/02/22 9:25 AM) 94 bpm (08/02/22 6:35 AM) Heart Rate Monitored [60-100 bpm] 115 bpm *HI* (07/25/22 11:00 PM) 106 bpm *HI* (07/25/22 10:26 PM) 99 bpm (07/25/22 9:24 PM) Respiratory Rate [12-24 br/min] 19 br/min (08/02/22 10:27 AM) 19 br/min (08/02/22 6:35 AM) 18 br/min (08/02/22 2:16 AM) Blood Pressure [90-140/60-90 mmHg] 150/72mmHg *HI* (08/02/22 10:27 AM) 148/71mmHg *HI* (08/02/22 9:25 AM) 152/106mmHg *HI* (08/02/22 6:35 AM) Mean Arterial Pressure, Cuff [65-140 mmHg] 98 mmHg (08/02/22 10:27 AM) 110 mmHg (08/01/22 5:37 AM) 100 mmHg (07/30/22 4:27 AM) Mean Arterial Pressure Cuff 118 mmHg (08/02/22 6:35 AM) 90 mmHg (08/02/22 2:16 AM) 95 mmHg (08/01/22 10:24 PM) Blood Pressure Location Right arm (08/02/22 2:16 AM) Right arm (08/01/22 10:24 PM) Right arm (08/01/22 6:58 PM) Blood Pressure Method Automatic (08/02/22 2:16 AM) Automatic (08/01/22 10:24 PM) Automatic (08/01/22 6:58 PM) Weight 55 kg (08/02/22 6:35 AM) 55.3 kg (08/01/22 6:19 AM) 58.2 kg (07/31/22 6:35 AM) Weight Dosing 57.20 kg (07/25/22 2:26 PM) Weight Estimated 57.20 kg (07/25/22 10:20 AM) Height/Length Dosing 165.000 cm (07/25/22 2:26 PM) Height/Length Estimated 165.000 cm (07/25/22 10:20 AM) Social History Social History Type Response Tobacco Former tobacco user Tobacco Use:. Sex Female Hospital Discharge Instructions Patient Education 08/02/2022 07:51:53 Ischemic Stroke Ischemic Stroke An ischemic stroke (cerebrovascular accident, or CVA) is the sudden of brain tissue that occurs when an area of the brain does not get enough blood flow. This condition is a medical emergency that must be treated right away. An ischemic stroke can cause permanent loss of brain function. Losing brain function can cause problems with how different parts of the body work. What are the causes? This condition is caused by a decrease of blood flow to an area of the brain, which may be the result of: ??? A small blood clot (embolus) or a buildup of plaque in the blood vessels, called atherosclerosis, that blocks blood flow in the brain. ??? An abnormal heart rhythm called atrial fibrillation, which sends a small blood clot to the brain. ??? A blocked or damaged artery in the head or neck. ??? Certain infections. ??? Inflammation of the arteries in the brain (vasculitis). Sometimes, the cause of ischemic stroke is not known. What increases the risk? The following factors may make you more likely to develop this condition: Factors that you can change ??? High blood pressure (hypertension) or certain other medical conditions, such as: ??? Heart disease. ??? Diabetes mellitus. ??? High cholesterol. ??? Obesity. ??? Sleep apnea. ??? Migraine headache. ??? Smoking cigarettes or using other tobacco products. ??? Physical inactivity. ??? Heavy alcohol use. ??? Use of illegal drugs, especially cocaine and methamphetamine. ??? Taking control pills, especially if you also use tobacco. Factors that you cannot change ??? Being older than age 60. ??? History of blood clots, stroke, or mini-stroke (transient ischemic attack, TIA). ??? History of high blood pressure when (preeclampsia), in women. ??? Family history of stroke. ??? Sickle cell disease. ??? Blood clotting disorders (hypercoagulable state). What are the signs or symptoms? Symptoms of this condition usually develop suddenly, or you may notice them after waking from sleep. These sudden symptoms may include: ??? Weakness or numbness of your face, arm, or leg, especially on one side of your body. ??? Loss of balance or coordination. ??? Slurred speech, or aphasia. Aphasia is trouble speaking or trouble understanding speech or both. ??? Vision changes in one or both eyes. You may have double vision, blurred vision, or loss of vision. ??? Dizziness or confusion. ??? Nausea and vomiting. ??? Severe headache with no known cause. If possible, write down the exact time that you last felt like your normal self and what time your symptoms started. Tell your health care provider. If symptoms come and go, they could be signs of a TIA (transient ischemic attack). Get help right away, even if you feel better. How is this diagnosed? This condition may be diagnosed based on: ??? Your symptoms, your medical history, and a physical exam. ??? CT scan of the brain. ??? MRI. ??? Imaging tests that scan blood flow (circulation) in the brain. These may be CT angiogram, MRI angiogram, or cerebral angiogram. You may need to see a health care provider who specializes in stroke care. A stroke specialist can be seen in person or through communication using telephone or television technology (telemedicine). You may also have other tests, including: ??? Electrocardiogram (ECG). ??? Continuous heart monitoring. ??? Transthoracic echocardiogram (TTE). ??? Transesophageal echocardiogram (ANASTACIO). ??? Carotid ultrasound. ??? Blood tests. ??? Sleep study to check for sleep apnea. How is this treated? Treatment for this condition depends on the duration, severity, and cause of your symptoms and on the area of the brain affected. It is very important to get treatment at the first sign of stroke symptoms. Some treatments work better if they are done within 3???6 hours of the start of stroke symptoms. These initial treatments may include: ??? Thrombolytic medicine that is injected to dissolve the blood clot. ??? Treatments given directly to the affected artery to remove or dissolve the blood clot. ??? Medicines to control blood pressure. ??? Anticoagulant or antiplatelet medicines to thin the blood. Other treatments may include: ??? Oxygen. ??? IV fluids. ??? Procedures to increase blood flow. Medicines and diet changes may be used to help manage risk factors for stroke, such as diabetes, high cholesterol, and high blood pressure. After a stroke, you may work with physical, speech, mental health, or occupational therapists to help you recover. Follow these instructions at home: Medicines ??? Take [id number] and prescription medicines only as told by your health care provider. ??? If you were told to take a medicine to thin your blood, take your medicine exactly as told, at the same time every day. This includes aspirin or an anticoagulant. ??? Taking too much blood-thinning medicine can cause bleeding. ??? If you do not take enough blood-thinning medicine, you will not be protected enough against another stroke and other problems. ??? Understand the side effects of taking anticoagulant medicine. When taking this type of medicine, make sure you: ??? Hold pressure over any cuts for longer than usual. ??? Tell your dentist and other health care providers that you are taking anticoagulants before youhave any procedures that may cause bleeding. ??? Avoid activities that could cause injury or bruising. ??? Wear a medical alert bracelet or carry a card that lists what medicines you take. Eating and drinking ??? Follow instructions from your health care provider about diet. ??? Eat healthy foods. ??? If your stroke affected your ability to swallow, you may need to take steps to avoid choking. These may include taking small bites when eating and eating foods that are soft or pureed. Safety ??? Follow instructions from your health care team about physical activity. ??? Use a walker or cane as told by your health care provider. ??? Take steps to create a safe home environment to lower your risk of falls. These steps may include: ??? Having your home looked at by specialists. ??? Installing grab bars in the bedroom and bathroom. ??? Using safety equipment, such as raised toilets and a seat in the shower. General instructions ??? Do not use any products that contain nicotine or tobacco, such as cigarettes, e-cigarettes, andchewing tobacco. If you need help quitting, ask your health care provider. ??? If you drink alcohol: ??? Limit how much you use to: ??? 0???1 drink a day for women. ??? 0???2 drinks a day for men. ??? Be aware of how much alcohol is in your drink. In the [place] one drink equals one 12 oz bottle of beer (355 mL), one 5 oz glass of wine (148 mL), or one 1?? oz glass of hard liquor (44 mL). ??? If you need help to stop using drugs or alcohol, ask your health care provider about a referralto a program or specialist. ??? Maintain an active and healthy lifestyle. Get regular exercise as told. ??? Wear a medical bracelet as told by your health care provider. ??? Keep all follow-up visits as told by your health care provider, including visits with all specialists on your health care team. This is important. How is this prevented? You can lower your risk of another stroke by managing high blood pressure, high cholesterol, diabetes, heart disease, sleep apnea, and obesity. Your risk can also be lowered by quitting smoking, limiting alcohol, and staying physically active. Your health care provider will continue to help you with ways to prevent short- term and long-term problems caused by stroke. Get help right away if: You have any symptoms of a stroke. BE FAST is an easy way to remember the main warning signs of astroke: ??? B - Balance. Signs are dizziness, sudden trouble walking, or loss of balance. ??? E - Eyes. Signs are trouble seeing or a sudden change in vision. ??? F - Face. Signs are sudden weakness or numbness of the face, or the face or eyelid drooping on one side. ??? A - Arms. Signs are weakness or numbness in an arm. This happens suddenly and usually on one side of the body. ??? S - Speech. Signs are sudden trouble speaking, slurred speech, or trouble understanding what people say. ??? T - Time. Time to call emergency services. Write down what time symptoms started. You have other signs of a stroke, such as: ??? A sudden, severe headache with no known cause. ??? Nausea or vomiting. ??? Seizure. These symptoms may represent a serious problem that is an emergency. Do not wait to see if the symptoms will go away. Get medical help right away. Call your local emergency services (911 in the [place] Do not drive yourself to the hospital. Summary ??? An ischemic stroke (cerebrovascular accident, or CVA) is the sudden of brain tissue that occurs when an area of the brain does not get enough blood flow. ??? Symptoms of this condition usually develop suddenly, or you may notice them after waking from sleep. ??? It is very important to get treatment at the first sign of stroke symptoms. Stroke is a medicalemergency that must be treated right away. This information is not intended to replace advice given to you by your health care provider. Make sure you discuss any questions you have with your health care provider. Document Revised: 07/11/2020 Document Reviewed: 07/11/2020 Elsevier Patient Education ?? 2020 [employer] Follow Up Care 07/25/2022 10:20:25 With:[facility], Adalid Gaspar MD Address: [address] [phone] When:1 month Discharge instructions * Sarah Guzman: PERFORM Event Display: Discharge Instructions Authored Date: [id number] PABLO ZIMMER :1935 Age:87 years Sex:Female Visit Date:07/25/2022 Primary Care Physician: Adalid Mckay MD Hospital Discharge Instructions We would like to thank you for allowing us to assist you with your healthcare needs. The following includes patient education materials and information regarding your injury/illness. After you leave the hospital, you may get your health information including your test results, physician notes and discharge information by accessing your Patient Portal. Your Next Steps Discharge Orders Discharge Activity Restrictions, As Instructed by Physical Therapy Discharge Diet Instruction, Regular home diet Other (please specify), Dysphagia, mechanical soft. Discharge Follow Up Instructions, 08/02/22 8:48:00 EST, When following are met: Alert and awake, Follow up with PCP within 1 week. Call for appointment Scheduled Future Appointments Saturday. 2022 10:30 AM EST ?? Follow Up Appointments Follow Up with??Adalid Mckay MD When:??Within 1 month Where: [address] [phone] [phone] The Following Equipment Has Been Ordered for You Home Equipment - Pulse oximeter, Walker, Other: BP Machine Medications What How Much When Instructions Next Dose New aspirin (aspirin 81 mg oral tablet, chewable) 1 tab Oral (given by mouth) Every day Pickup at [facility] New atorvastatin (atorvastatin 40 mg oral tablet) 1 tab Oral (given by mouth) With Evening Meal Pickup at [facility] New metoprolol (metoprolol succinate 25 mg oral tablet, extended release) 1 tab Oral (given by mouth) Every day Pickup at [facility] Unchanged albuterol (Ventolin HFA 90 mcg/ inh inhalation aerosol) 2 Puffs Inhale (breathe in) Every 5 hours as needed for as needed for wheezing Unchanged cholecalciferol (Vitamin D3 1000 intl units oral tablet) 2.5 tab Oral (given by mouth) Every day Unchanged losartan (losartan 25 mg oral tablet) 1 tab Oral (given by mouth) Every evening Unchanged multivitamin with minerals (PreserVision AREDS 2 oral capsule) 1 Capsules Oral (given by mouth) 2 times a day Unchanged omega-3 polyunsaturated fatty acids (Hampton-3 Fish Oil) 1 Capsules Oral (given by mouth) Every day Pharmacy Information [facility]: [address] [place], [place] [id number] [phone] Your Summary Your Care Team Admitting Physician - Evie Baker NP Attending Physician - Toby Cao DO Primary Care Physician - [facility], Adalid Gaspar MD Your Diagnosis Acute ischemic right MCA stroke UTI (urinary tract infection) Atrial fibrillation with RVR Febrile NSTEMI (non-ST elevated myocardial infarction) Unspecified dementia, mild, with anxiety Problems Ongoing - Any problem that you are currently receiving treatment for. NSTEMI (non-ST elevated myocardial infarction) Unspecified dementia, mild, with anxiety Tests Performed/Pending Automated Diff Basic Metabolic Panel CBC w/ Diff CBC w/o Diff CK CMP Creatine Kinase Glucose POCT Magnesium Level PT/ INR PTT SARS-CoV-2 (COVID-19) RNA (ID Now) Troponin-I TSH w/ Rflx to Free T4 Urinalysis Microscopic Urinalysis with Micro if Indicated and Culture if Indicated Discharge Vitals Temperature??(Temporal Artery) 98.4 ??F (36.9 ??C) Heart Rate??(Peripheral) 87 Respiratory Rate?? 19 Blood Pressure?? 148/71?? Weight?? 121.28 lb (55 kg) Allergies tetanus-diphth toxoids (Td) adult/adol Education Materials Ischemic Stroke An ischemic stroke (cerebrovascular accident, or CVA) is the sudden of brain tissue that occurs when an area of the brain does not get enough blood flow. This condition is a medical emergency that must be treated right away. An ischemic stroke can cause permanent loss of brain function. Losing brain function can cause problems with how different parts of the body work. What are the causes? This condition is caused by a decrease of blood flow to an area of the brain, which may be the result of: ? A small blood clot (embolus) or a buildup of plaque in the blood vessels, called atherosclerosis, that blocks blood flow in the brain. ? An abnormal heart rhythm called atrial fibrillation, which sends a small blood clot to the brain. ? A blocked or damaged artery in the head or neck. ? Certain infections. ? Inflammation of the arteries in the brain (vasculitis). Sometimes, the cause of ischemic stroke is not known. What increases the risk? The following factors may make you more likely to develop this condition: Factors that you can change ? High blood pressure (hypertension) or certain other medical conditions, such as: ? Heart disease. ? Diabetes mellitus. ? High cholesterol. ? Obesity. ? Sleep apnea. ? Migraine headache. ? Smoking cigarettes or using other tobacco products. ? Physical inactivity. ? Heavy alcohol use. ? Use of illegal drugs, especially cocaine and methamphetamine. ? Taking control pills, especially if you also use tobacco. Factors that you cannot change ? Being older than age 60. ? History of blood clots, stroke, or mini-stroke (transient ischemic attack, TIA). ? History of high blood pressure when (preeclampsia), in women. ? Family history of stroke. ? Sickle cell disease. ? Blood clotting disorders (hypercoagulable state). What are the signs or symptoms? Symptoms of this condition usually develop suddenly, or you may notice them after waking from sleep. These sudden symptoms may include: ? Weakness or numbness of your face, arm, or leg, especially on one side of your body. ? Loss of balance or coordination. ? Slurred speech, or aphasia. Aphasia is trouble speaking or trouble understanding speech or both. ? Vision changes in one or both eyes. You may have double vision, blurred vision, or loss of vision. ? Dizziness or confusion. ? Nausea and vomiting. ? Severe headache with no known cause. If possible, write down the exact time that you last felt like your normal self and what time your symptoms started. Tell your health care provider. If symptoms come and go, they could be signs of a TIA (transient ischemic attack). Get help right away, even if you feel better. How is this diagnosed? This condition may be diagnosed based on: ? Your symptoms, your medical history, and a physical exam. ? CT scan of the brain. ? MRI. ? Imaging tests that scan blood flow (circulation) in the brain. These may be CT angiogram, MRI angiogram, or cerebral angiogram. You may need to see a health care provider who specializes in stroke care. A stroke specialist can be seen in person or through communication using telephone or television technology (telemedicine). You may also have other tests, including: ? Electrocardiogram (ECG). ? Continuous heart monitoring. ? Transthoracic echocardiogram (TTE). ? Transesophageal echocardiogram (ANASTACIO). ? Carotid ultrasound. ? Blood tests. ? Sleep study to check for sleep apnea. How is this treated? Treatment for this condition depends on the duration, severity, and cause of your symptoms and on the area of the brain affected. It is very important to get treatment at the first sign of stroke symptoms. Some treatments work better if they are done within 3???6 hours of the start of stroke symptoms. These initial treatments may include: ? Thrombolytic medicine that is injected to dissolve the blood clot. ? Treatments given directly to the affected artery to remove or dissolve the blood clot. ? Medicines to control blood pressure. ? Anticoagulant or antiplatelet medicines to thin the blood. Other treatments may include: ? Oxygen. ? IV fluids. ? Procedures to increase blood flow. Medicines and diet changes may be used to help manage risk factors for stroke, such as diabetes, high cholesterol, and high blood pressure. After a stroke, you may work with physical, speech, mental health, or occupational therapists to help you recover. Follow these instructions at home: Medicines ? Take [id number] and prescription medicines only as told by your health care provider. ? If you were told to take a medicine to thin your blood, take your medicine exactly as told, at the same time every day. This includes aspirin or an anticoagulant. ? Taking too much blood-thinning medicine can cause bleeding. ? If you do not take enough blood-thinning medicine, you will not be protected enough against anotherstroke and other problems. ? Understand the side effects of taking anticoagulant medicine. When taking this type of medicine, make sure you: ? Hold pressure over any cuts for longer than usual. ? Tell your dentist and other health care providers that you are taking anticoagulants before you have any procedures that may cause bleeding. ? Avoid activities that could cause injury or bruising. ? Wear a medical alert bracelet or carry a card that lists what medicines you take. Eating and drinking ? Follow instructions from your health care provider about diet. ? Eat healthy foods. ? If your stroke affected your ability to swallow, you may need to take steps to avoid choking. Thesemay include taking small bites when eating and eating foods that are soft or pureed. Safety ? Follow instructions from your health care team about physical activity. ? Use a walker or cane as told by your health care provider. ? Take steps to create a safe home environment to lower your risk of falls. These steps may include: ? Having your home looked at by specialists. ? Installing grab bars in the bedroom and bathroom. ? Using safety equipment, such as raised toilets and a seat in the shower. General instructions ? Do not use any products that contain nicotine or tobacco, such as cigarettes, e- cigarettes, and chewing tobacco. If you need help quitting, ask your health care provider. ? If you drink alcohol: ? Limit how much you use to: ? 0???1 drink a day for women. ? 0???2 drinks a day for men. ? Be aware of how much alcohol is in your drink. In the [place] one drink equals one 12 oz bottle of beer (355 mL), one 5 oz glass of wine (148 mL), or one 1?? oz glass of hard liquor (44 mL). ? If you need help to stop using drugs or alcohol, ask your health care provider about a referral to a program or specialist. ? Maintain an active and healthy lifestyle. Get regular exercise as told. ? Wear a medical bracelet as told by your health care provider. ? Keep all follow-up visits as told by your health care provider, including visits with all specialists on your health care team. This is important. How is this prevented? You can lower your risk of another stroke by managing high blood pressure, high cholesterol, diabetes, heart disease, sleep apnea, and obesity. Your risk can also be lowered by quitting smoking, limiting alcohol, and staying physically active. Your health care provider will continue to help you with ways to prevent short- term and long-term problems caused by stroke. Get help right away if: You have any symptoms of a stroke. BE FAST is an easy way to remember the main warning signs of astroke: ? B - Balance. Signs are dizziness, sudden trouble walking, or loss of balance. ? E - Eyes. Signs are trouble seeing or a sudden change in vision. ? F - Face. Signs are sudden weakness or numbness of the face, or the face or eyelid drooping on one side. ? A - Arms. Signs are weakness or numbness in an arm. This happens suddenly and usually on one side of the body. ? S - Speech. Signs are sudden trouble speaking, slurred speech, or trouble understanding what peoplesay. ? T - Time. Time to call emergency services. Write down what time symptoms started. You have other signs of a stroke, such as: ? A sudden, severe headache with no known cause. ? Nausea or vomiting. ? Seizure. These symptoms may represent a serious problem that is an emergency. Do not wait to see if the symptoms will go away. Get medical help right away. Call your local emergency services (911 in the [place] Do not drive yourself to the hospital. Summary ? An ischemic stroke (cerebrovascular accident, or CVA) is the sudden of brain tissue that occurs when an area of the brain does not get enough blood flow. ? Symptoms of this condition usually develop suddenly, or you may notice them after waking from sleep. ? It is very important to get treatment at the first sign of stroke symptoms. Stroke is a medical emergency that must be treated right away. This information is not intended to replace advice given to you by your health care provider. Make sure you discuss any questions you have with your health care provider. Document Revised: 07/11/2020 Document Reviewed: 07/11/2020 Elsevier Patient Education ?? 2020 [employer] Patient Name:PABLO ZIMMER I have received this information and my questions have been answered. Patient/Flask Maker Name: Patient/Flask Maker Signature: Relationship to Patient: Witness Name/Signature: Date: Electronically Signed on: 08/02/2022 09:35 ESTSigned by:SUSIE Speech-language pathology Progress note * Renetta Judd MS, CCC-MOTORBOAT MECHANIC INBOARD: PERFORM, MODIFY Event Display: Speech Therapy Progress Note Authored Date: [id number] Patient ID and date of checked: Yes *Current Level of Care: In-Patient *Admitting??Diagnosis: CVA *Therapy Diagnosis: Dysphagia *Subjective: ??Pt was eating lunch in bed upon arrival in a semi-reclined position, struggling to feed herself and increasing her aspiration risk. Nsg and MICKEY notified. Education provided regarding aspiration risks and swallow precautions including upright for all meals. PUBLIC TRANSIT BUS DRIVER assisted MOTORBOAT MECHANIC INBOARD to reposition. Pt was pleasant and cooperative throughout and stated that she was going to a skilled nsg facility tomorrow. Marya Sarmiento was confirmed with counter caser. Swallow Treatment Techniques ??x Solid/texture trials Pharyngeal/laryngeal exercises ??x Liquid consistency trials Body positioning ??x Bolus rate/size control Head/neck postural changes Thermal/tactile stimulation Oral/pharyngeal swallow maneuvers Oral motor exercises Techniques to increase coordination of respiration/swallowing Pt did not want to trial regular textures today. Pt and staff instructed in safe swallow strategiesincluding proper positioning, placement of food to right side of tray table, safe size bites, pacing rate of intake, alternating sips of liquids via cup every few bites of food and attending to left side of interior and exterior oral cavity to clear material. Intermittent supervision for cuing continues to be recommended. Pt managed mechanical soft solids and thin liquids without difficulty with decreased pt cues from MOTORBOAT MECHANIC INBOARD for strategies however staff continue to need further instruction. *Patient Education??Provided Today: ??Pt and staff education provided regarding aspiration precautions and risks/consequences of aspiration. Collaboration with CM for discharge plans. *MOTORBOAT MECHANIC INBOARD??Assessment: ??Pts overall alertness and swallowing function improving with pt managing increased textures with decreasing cuing for safe swallow strategies. She will continued to benefit from skilled [employer]ORBOAT MECH[employer]IC INBOARD services for dysphagia management in order to return to [facility]. *MOTORBOAT MECHANIC INBOARD??Plan of Care: Continue per POC Skilled Treatment/Training in Safe Performance of/Correct Technique with Vocal hygiene ??x Safe swallow strategies/techniques Thorough oral care demonstration ??x Diet modification analysis ??x Staff/Caregiver/Family training Other: *Treatment Plan: continue per plan of care *CPT Charge Codes CPT Code Units Minutes ??x CPT 87822:??Swallow treatment ??1 ??25 *Total Time: 25 minutes *Time In: 12:05 PM *Time Out: 12:30 PM Electronically Signed on 08/01/22 12:41 PM Renetta Judd MS, CCC-MOTORBOAT MECHANIC INBOARD * Renetta Judd MS, CCC-MOTORBOAT MECHANIC INBOARD: PERFORM, MODIFY, MODIFY, MODIFY, MODIFY, MODIFY, MODIFY Event Display: Speech Therapy Progress Note Authored Date: [id number] Patient ID and date of checked: Yes *Current Level of Care: In-Patient *Admitting??Diagnosis: CVA *Therapy Diagnosis: Dysphagia *Subjective: ??Pt was sitting up in her chair upon arrival gazing towards the right. Pt asking for her hair pick. She was pleasant and cooperative throughout. Swallow Treatment Techniques ??x Solid/texture trials Pharyngeal/laryngeal exercises ??x Liquid consistency trials Body positioning ??x Bolus rate/size control Head/neck postural changes Thermal/tactile stimulation Oral/pharyngeal swallow maneuvers Oral motor exercises Techniques to increase coordination of respiration/swallowing ??Pt agreeable to trial mechanical soft with ground meat once it was presented in front of her, stating, Oh that looks really good. Pt required mod-min cues for safe size bites and pacing. Oral residue noted post swallows however cleared with liquid wash and verbal cues for lingual sweep to left lateral sulci. Pt managed mechanical soft solids and thin liquids via cup sips with no overt s/s aspiration and s/s oral dysphagia above compensated for with cues. Pt trialed with straw sips. She did manage with no overt s/s aspiration however it was more difficult for her to control bolus size. Recommend continue with cup sips for meals, snacks and meds. Pt may use straw provided she is not having anything PO at the same time including meds. Recommend upgrade to mechanical soft with ground meats. Trialed whole meds, one at a time with cup sips, no difficulty noted. Collaboration with pts PCP regarding current swallowing status and recommendations. *Patient Education??Provided Today: ??Pt education provided regarding rationale for MOTORBOAT MECHANIC INBOARD, plan of care and goals including current swallowing status. *MOTORBOAT MECHANIC INBOARD??Assessment: ??Pts dysphagia is improving. She was able to tolerate increased textures today with no overt s/s aspiration. Pt will continue to require intermittent supervision and cuing however for safe swallow strategies to continue to mitigate aspiration risks. *MOTORBOAT MECHANIC INBOARD??Plan of Care: Skilled Treatment/Training in Safe Performance of/Correct Technique with Vocal hygiene ??x Safe swallow strategies/techniques Thorough oral care demonstration ??x Diet modification analysis ??x Staff/Caregiver/Family training Other: *Treatment Plan: continue per plan of care Swallow Recommendations: Recommended Liquids ??x Thin liquids (single cup sips only with meals, snacks and meds). May use straw ONLY in absence of PO. Pudding thick liquids [place] thick liquids NPO Honey thick liquids Recommended??Diet Regular Liquified Advanced mechanical soft Chopped/cut meat ??x Mechanical soft ??x Ground meat Puree Puree meat Thin blended puree NPO Additional Safety Precautions ??x Feed only when alert Reduce distractions ??x Needs verbal cues to use recommended strategies Recommended Assistance None Total assist/dependent Set up only Direct supervision with self-feeding Distant supervision Direct supervision/feed patient ??x 1:1 supervision (pt is able to feed herself, however likely requires support with set up. Pt requiring 100% supervision during meal time to ensure safety given pt fatigues easily and has varying alertness To be fed by trained staff/family only Minimal assist To be fed by MOTORBOAT MECHANIC INBOARD only Moderate assist Recommended Position Changes/Maneuvers Chin tuck Super supraglottic swallow Left head tilt Effortful swallow Right head tilt Neo maneuver Left head turn ??x Upright all meals Right head turn ??x Stay upright 30 min after eating Head tilt back ??x Out of bed all meals/snacks Supraglottic swallow Use supports to ensure upright/midline posture Recommended Adaptive Equipment None ??x Other cup (pt had an easier time using a small cup today) Nosey cup Lipped plate Spouted??cup Adaptive utensils Recommended Strategies/Adaptations Feed in low stimulation environment Cough/clear throat every 2-3 bites and re-swallow ??x Alternate liquids and solids Small portions Liquids via spoon Frida Free Water protocol Straw only Refrain from talking while eating No straw Downward pressure on tongue with spoon ??x Small sips/ single sips Cold/iced spoon Direct food to left side of mouth Monitor O2 sats during meals Direct food to right side of mouth ??x Chew thoroughly before swallowing ??x Small bites ??x Ensure dentures/partials in all meals/snacks Large bites Enhanced temperature/taste ??x Pace rate of eating ??x Oral care after meals ??x Ensure complete swallow before next bite ??x Check mouth at end of meal Swallow two times per bite Small meals 5-6 a day Multiple swallows ??x ??Cue to use tongue to clear oral cavity Recommended Medication Delivery ??x Whole (one at a time) Crushed Non-oral ??x With water (cup sips only, no straw with meds) With applesauce/pudding *CPT Charge Codes CPT Code Units Minutes ??x CPT 07707:??Swallow treatment ??1 ??30 *Total Time: 30 minutes *Time In: 7:55 AM *Time Out: 8:25 AM Electronically Signed on 07/31/22 09:02 AM Renetta Judd MS, CCC-MOTORBOAT MECHANIC INBOARD * Susan Olivera MA, CCC-MOTORBOAT MECHANIC INBOARD: PERFORM Event Display: Speech Therapy Progress Note Authored Date: Patient ID and date of checked: yes *Current Level of Care: In-Patient *Admitting??Diagnosis: CVA *Therapy Diagnosis: Dysphagia *Subjective: ??Pt up in chair when MOTORBOAT MECHANIC INBOARD entered the room. Nsg and PUBLIC TRANSIT BUS DRIVER repositioned Pt for breakfast.Nsg reported that Pt had been coughing with liquids occasionally per night nsg report, however, a straw had been used. Reiterated the recommendation for cup sips. Pt stated that she likes her diet and doesn't want to trial mechanical soft at this time. Swallow Treatment Techniques ??x Solid/texture trials Pharyngeal/laryngeal exercises ??x Liquid consistency trials Body positioning Bolus rate/size control Head/neck postural changes Thermal/tactile stimulation Oral/pharyngeal swallow maneuvers Oral motor exercises Techniques to increase coordination of respiration/swallowing Pt managing single sips of thin liquid via cup and puree consistencies. No additional prompts needed today. *Patient Education??Provided Today: Discussed puree consistency with Pt and nsg and plan to check on diet tomorrow. *MOTORBOAT MECHANIC INBOARD??Assessment: Pt to remain on puree consistencies and thin liquids via single cup sips at this time. She may be trialed with mechanica soft tomorrow if she wishes but is safe to remain on current diet if she chooses. Pt responded appropriately to questions with a delay and with clear speech. Nsg does not have any concerns with speech at this time This will be monitored to determine if a full speech evaluation is appropriate over the next few days. Goal Updates: No updates *MOTORBOAT MECHANIC INBOARD??Plan of Care: Continue swallow tx Skilled Treatment/Training in Safe Performance of/Correct Technique with Vocal hygiene ??x Safe swallow strategies/techniques Thorough oral care demonstration ??x Diet modification analysis Staff/Caregiver/Family training Other: *Treatment Plan: continue per plan of care *CPT Charge Codes CPT Code Units Minutes ??x CPT 25369:??Swallow treatment ??1 ??20 *Total Time: 20 minutes *Time In: 9:00 am *Time Out: 9:20 am Electronically Signed on 07/30/22 10:00 AM Susan Olivera MA, CCC-MOTORBOAT MECHANIC INBOARD Occupational therapy Progress note * Rosemarie Benjamin OT: PERFORM Event Display: Occupational Therapy Progress Note Authored Date: [id number] Patient ID and date of checked: confirmed *Current Level of Care: In-Patient *Admitting Diagnosis: R MCA CVA *Therapy Diagnosis: Increased need for assistance with personal care, left sided muscle weakness, impaired coordination Pertinent Medical History: Patient found unresponsive, covered in urine and with left sided weakness by her friend, Munira. 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 CVA symptoms include right facial droop, slurred speech, L hemiplegia, and L visual neglect. 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 Patient did previously present to ED at this facility on 07/22, was found to have elevated troponin levelwith concern for STEMI, so transferred to [facility] for cardiac cath and returned home from [facility] on 07/24. *Subjective: Patient supine at OT arrival, stating she is discouraged regarding being wet all the time (referring to new bladder incontinence). She very easily agrees to OT treatment. Her friend, Munira, arriving during session. PUBLIC TRANSIT BUS DRIVER present to assist with sit to stand, given level of assistance required for safety during functional transfer. All needs in place and bed alarm on at OT departure. Pain: None reported. ADLs: Activity Assistance Comments Bathing Upper Body Bathing Lower Body Dressing Upper Body Dressing Lower Body Eating Shaving Combing Hair Brushing Teeth Toileting Patient reports no need for brief change at this time Bed Mobility: Activity Assistance Comments Rolling Scooting/Repositioning Supine to Sit Max assist ??supporting L LE to EOB and trunk Sit to Supine ??Max assist ??cues to lay onto R side, assist to lift B LE into bed Transfers: Activity Assistive Device Assistance Comments Sit to Stand ??lauren walker ??Max x2 ??From EOB, skilled training for appropriate hand and foot placement, as well as increased WB through L LE, gait belt utilized to maximize patient safety and mitigate fall risk Stand to Sit ??Mod x2 ??With fairly controlled descent to EOB Bed to Chair Chair to Bed Shower Transfer Toilet Transfer Balance: ?Static Sitting:??fair-, patient has significant left lean, can support self for 10 seconds at atime, stabilizing with R UE ?Dynamic Sitting: poor, unable to maintain independently at any time. ?Static Standing:?Poor ?Dynamic Standing: - Skilled Treatment/Training in Safe Performance of/Correct Techniques with: ?? Therapeutic activity: Therapist facilitation to maximize sitting balance required for ADL, including postural retraining and instruction for appropriate positioning, including B feet on floor, bedflattened. Patient also provided with opportunity to perform functional sit to stand transfer, withuse of hemiwalker, cueing for upright posture and increased WB through L LE. Patient maintains for 2 minutes, given mod-max assist x2. Therapeutic exercise: L shoulder flexion PROM and then AAROM with patient trained to support L UE with R hand/UE, 3 sets of 10 each. L elbow, wrist, and digit flexion/extension PROM to promote ROM and prevent contracture, 2 sets of 5 at each joint.. Skilled Treatment/Training in Safe Performance of/Correct Technique with: ??x Caregiver training ??x Use of adaptive equipment ??x Energy conservation during ADLs Precautions during ADLs Weight bearing during ADLs Family assisting with ADLs ??x Variations/graded heights/surfaces Appropriate weight bearing ??x Appropriate foot placement for transfer ??x Appropriate hand placement for transfer ??x Techniques for HEP HEP instruction/modification ??x PROM to decrease contractions ??x PROM to increase ROM ??x AAROM to increase strength/ROM AROM/open chain exercises to increase strength/ROM AROM/open chain exercises to improve gait stability and decrease risk of falls Positioning and techniques for edema reduction ??x Balance management ??x Coordination strategies/retraining ??x Postural retraining Proprioceptive strategies for sitting/standing activities Dressing strategies *Patient Education: Purpose of AA/PROM therex. Recommendation that caregivers speak to patient fromleft side, to promote attention to left visual field. Occupational Therapy Assessment: Patient remains highly motivated during OT session. She benefits from direct skilled training for performance and proper technique of L UE AA/PROM therex. Patient also benefits from skilled training to maximize sitting balance, to facilitate independence with ADL insitting. Patient anticipated to discharge to [facility] tomorrow. OT will continue to follow patient during admission at this facility as appropriate. Goal Updates: Due 08/16 *OT Plan of Care: Continue as per OT POC. *CPT Charge Codes: CPT Code Units Minutes ??x CPT 42990: Therapeutic Exercise ??1 ??11 ??x CPT 05296: Therapeutic Activity ??1 ??12 CPT 44176: Neuromuscular Re-education CPT 74216: Self-Care/Home Management CPT 68333: Manual Therapy CPT 93009: Massage CPT 84751: Ultrasound CPT 77001: Initial Orthotic Fit/Train CPT 41874: Initial Prosthetic Train CPT 55120:??Subsequent??Orthotic??Check CPT 03988:??Wheelchair??Management??Training CPT G0515: Cognitive Skills *Total Time: 23 minutes *Time In: 14:04 *Time Out: 14:27 Electronically Signed on 08/01/22 04:25 PM Rosemarie Benjamin OT * Minerva Talley: PERFORM Event Display: Occupational Therapy Progress Note Authored Date: [id number] Patient ID and date of checked: confirmed *Current Level of Care: In-Patient *Admitting Diagnosis: R MCA CVA *Therapy Diagnosis: Increased need for assistance with personal care, left sided muscle weakness, impaired coordination Pertinent Medical History: Patient found unresponsive, covered in urine and with left sided weakness by her friend, Munira. 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 CVA symptoms include right facial droop, slurred speech, L hemiplegia, and L visual neglect. 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 Patient did previously present to ED at this facility on 07/22, was found to have elevated troponin levelwith concern for STEMI, so transferred to [facility] for cardiac cath and returned home from [facility] on 07/24. *Subjective: Patient seated in recliner, having just completed endy transfer with nursing staff, and extremely agreeable to participate in functional performance on this date. Patient states I wantto get better. Patient left in chair with chair alarm on and call george within reach at therapist departure. Pain: None. ADLs: Activity Assistance Comments Bathing Upper Body ?? Min (A) Verbal and visual cues provided for patient to locate tissue box placed slightly left of patients midline on table. Patient grabs tissue with R hand and wipes face. Bathing Lower Body Dressing Upper Body Dressing Lower Body Eating ??SB (A) ??Patient sitting supported in chair, brings soup to mouth on spoon with R UE, moderate spillage. Patient brings open cup of milk to mouth x3 with no spilling. Shaving Combing Hair Brushing Teeth Toileting IADLs: Not addressed this date. Activity Assistance Comments Light Meal Prep Phone Call Light Housekeeping Tasks Money Management Medication Management Bed Mobility: Activity Assistance Comments Rolling Scooting/Repositioning ??Mod (A) Patient able to bridge hips to scoot in supine while weightbearing on RLE Supine to Sit Sit to Supine ??Max (A) ??To bring legs to bed level and guide patients UB to center of bed. Transfers: Activity Assistive Device Assistance Comments Sit to Stand ??lauren walker ??Max x2 ??With patient weightbearing on R LE to stand and utilizing HW with R UE. Patient able to correct kyphotic posture with cues to lift chin Stand to Sit ??Max x2 ??To guide patient to seat. Bed to Chair Chair to Bed ??Max x 2 ??Stand pivot transfer with patient weightbearing on RLE. Shower Transfer Toilet Transfer Functional Ambulation During ADLs: Not assessed this date. Assistance Assistive Device Distance Comments Wheelchair Mobility: n/a Assistance Distance Comments Balance: ?Static Sitting:??L lean while sitting supported in chair, cues to sit upright with patient ableto maintain upright unsupported sitting in chair for ~ 30 seconds with min hands on assist x1. ?Dynamic Sitting: NT ?Static Standing:?Poor, with patient able to assist during sit to stand transfer. ?Dynamic Standing: NT Posture: L lean, pillows placed under L UE and along trunk to correct posture while in supported sitting in chair. Patient able to correct posture with verbal cues, unable to maintain >30 seconds,still, L lean is slightly less severe. Skilled Treatment/Training in Safe Performance of/Correct Techniques with: ?? Therapeutic activity: Patient provided opportunity to sit unsupported in chair with therapist facilitation to maximize independence and use of bilateral UE during postural retraining. Therapist facilitation for weight bearing on bilateral UE, including hand over hand assist to achieve wrist in flexion and fingers in extension, while in unsupported sitting. Skilled instruction on scanning technique to locate task items placed at midline and slightly to the left of midline to address/improve left sided neglect. Skilled Treatment/Training in Safe Performance of/Correct Technique with: Caregiver training Use of adaptive equipment Energy conservation during ADLs Precautions during ADLs Weight bearing during ADLs Family assisting with ADLs Variations/graded heights/surfaces Appropriate weight bearing Appropriate foot placement for transfer Appropriate hand placement for transfer Techniques for HEP HEP instruction/modification PROM to decrease contractions PROM to increase ROM AAROM to increase strength/ROM AROM/open chain exercises to increase strength/ROM AROM/open chain exercises to improve gait stability and decrease risk of falls Positioning and techniques for edema reduction ??x Balance management ??x Coordination strategies/retraining ??x Postural retraining ??x Proprioceptive strategies for sitting/standing activities Dressing strategies Standardized Testing: Standardized Test:??[place] Cognitive Assessment ? Score: 15/30 ? Comments: A score of 10/30 to 17/30 indicates a moderate cognitive impairment. Patient performed the highest on orientation, abstraction, and visual perceptual task items. She performed the lowest on visuospatial and executive functioning tasks. Standardized Test:??[place] Test ? Score: located 2/35 bells (upper right quadrant of sheet) in 4 minutes 45 seconds. ? Comments:??Patient was able to identify very few targets with increased time to complete. All targets that were located were placed on the upper right corner of the page. Patient's performance suggests a Left visual neglect, with 0/17 bells located from the left visual field. Patient also demonstrated a disorganized scanning pattern and selected 3 distractors (R side), indicating an attentional deficit. Patient Education: Reinforced scanning technique to locate task items during ADL performance. Occupational Therapy Assessment: Patient continues to be very motivated to participate in functional performance on this date. Patient scored a 15/30 on the [place] Cognitive assessment on this date, which suggests a moderate cognitive impairment. Patient presents today with an increased ability to assist in functional transfers by weightbearing in R LE including sit to stand with lauren walker and max assist x2. Patient also demonstrated the ability to maintain unsupported sitting for ~30 second increments. Patient does continue to demonstrate L sided neglect and requires verbal and visual cues, and increased time, to attend to task items located on her left side. Patient will continue to benefit from skilled acute OT services. This therapist strongly recommending acute rehabilitation placement to facilitate patient's return to previously independent functional level. Goal Updates: Due 08/16 *OT Plan of Care: Continue OT POC. *CPT Charge Codes: CPT Code Units Minutes CPT 50647: Therapeutic Exercise ??x CPT 23722: Therapeutic Activity ??1 ??11 CPT 17637: Neuromuscular Re-education CPT 16151: Self-Care/Home Management CPT 57276: Manual Therapy CPT 91180: Massage CPT 53125: Ultrasound CPT 15259: Initial Orthotic Fit/Train CPT 01852: Initial Prosthetic Train CPT 84552:??Subsequent??Orthotic??Check CPT 86561:??Wheelchair??Management??Training ??x CPT G0515: Cognitive Skills ??1 ??20 *Total Time: 31 *Time In: 11:40 *Time Out: 12:11 Electronically Signed on 07/31/22 04:40 PM Minerva Talley * Minerva Talley: PERFORM, MODIFY, MODIFY, MODIFY Event Display: Occupational Therapy Progress Note Authored Date: [id number] Patient ID and date of checked: confirmed *Current Level of Care: In-Patient *Admitting Diagnosis: R MCA CVA *Therapy Diagnosis: Increased need for assistance with personal care, left sided muscle weakness, impaired coordination Pertinent Medical History: Patient found unresponsive, covered in urine and with left sided weakness by her friend, Munira. 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 CVA symptoms include right facial droop, slurred speech, L hemiplegia, and L visual neglect. 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 Patient did previously present to ED at this facility on 07/22, was found to have elevated troponin levelwith concern for STEMI, so transferred to [facility] for cardiac cath and returned home from [facility] on 07/24. *Subjective: Patient supine in recliner upon therapist arrival. Patient states I'll be better whenI can talk better. Patient left in chair with chair alarm on, call george within reach, and all needs in place at therapist departure. Pain: None. ADLs: Activity Assistance Comments Bathing Upper Body ??Set up (A) ??Seated upright in chair, patient sponge bathes face, neck and chest, with warm cloth. Bathing bilateral sides adequately using R hand, with no cuing. Hand over hand assist for bimanual task completing with use of L hand. Bathing Lower Body Dressing Upper Body Dressing Lower Body Eating Shaving Combing Hair Brushing Teeth Toileting IADLs: Activity Assistance Comments Light Meal Prep Phone Call ??Max (A) ??With patient verbalizing phone number, hand over hand to dial using LUE, patient unable to see numbers on keys even when placed in R visual field. Light Housekeeping Tasks Money Management Medication Management Bed Mobility: Assessed while in reclining chair Activity Assistance Comments Rolling Scooting/Repositioning ??Max x1 ??In reclining chair, cues for patient to use R LE to push self upright with therapist assist to reposition patient with bed mat. Supine to Sit Sit to Supine Transfers: Not assessed this date Activity Assistive Device Assistance Comments Sit to Stand Stand to Sit Bed to Chair Chair to Bed Shower Transfer Toilet Transfer Functional Ambulation During ADLs: Patient unsafe to attempt functional ambulation on this date. Assistance Assistive Device Distance Comments Wheelchair Mobility: n/a Assistance Distance Comments Balance: ?Static Sitting:??L lean while sitting supported in chair, max assist to reposition to upright posture. poor ?Dynamic Sitting: NT ?Static Standing:?NT ?Dynamic Standing: NT Posture: L lean, pillows placed under L UE and along trunk to correct posture while in supported sitting in chair. Skilled Treatment/Training in Safe Performance of/Correct Techniques with: ?Self-Care: Patient provided opportunity to perform UB hygiene while seated supported in chair, with task materials placed at eye level in front of patient to promote visual scanning towards affected L side. Education on compensatory strategies for visual field deficits. Skilled Treatment/Training in Safe Performance of/Correct Technique with: Caregiver training Use of adaptive equipment Energy conservation during ADLs Precautions during ADLs Weight bearing during ADLs Family assisting with ADLs Variations/graded heights/surfaces Appropriate weight bearing Appropriate foot placement for transfer Appropriate hand placement for transfer Techniques for HEP HEP instruction/modification PROM to decrease contractions PROM to increase ROM AAROM to increase strength/ROM AROM/open chain exercises to increase strength/ROM AROM/open chain exercises to improve gait stability and decrease risk of falls Positioning and techniques for edema reduction Balance management ??x Coordination strategies/retraining ??x Postural retraining Proprioceptive strategies for sitting/standing activities Dressing strategies Standardized Testing: Standardized Test:??Attempted MoCA and [place] test on this date with patient reporting she is unableto see without her glasses. This therapist spoke with patient's neighbor who will be bringing her glasses later today. _ ? Score: ? Comments: Patient Education: Patient introduced to this therapist. Education on use of call george, and compensatory strategies including to scan for items by turning her head like a lighthouse. Occupational Therapy Assessment: Patient very agreeable to participate in OT session on this date and verbalized motivation to work hard to regain function. Patient demonstrated the ability to assist in chair mobility, by using her unaffected R LE, after verbal instructions to do so. Patient continues to have significantly impaired sitting balance on this date and is currently not safe to perform higher level functional transfers. Patient is very motivated to improve and will benefit from continued skilled OT services to maximize functional independence and safety during ADLs. This therapist strongly recommending acute rehabilitation placement to facilitate patient's return to previously independent functional level. Goal Updates: Due 08/16 *OT Plan of Care: George's test and MoCA to be preformed once patient obtains her glasses. *CPT Charge Codes: CPT Code Units Minutes CPT 71941: Therapeutic Exercise CPT 29921: Therapeutic Activity CPT 55540: Neuromuscular Re-education ??x CPT 78365: Self-Care/Home Management ??2 ??35 CPT 01481: Manual Therapy CPT 87578: Massage CPT 37371: Ultrasound CPT 08944: Initial Orthotic Fit/Train CPT 62940: Initial Prosthetic Train CPT 41607:??Subsequent??Orthotic??Check CPT 42953:??Wheelchair??Management??Training CPT G0515: Cognitive Skills *Total Time: 35 *Time In: 10:10 *Time Out: 10:45 Electronically Signed on 07/27/22 05:14 PM Minerva Talley A EKG study * Event Display: Telemetry Strips Please click on link to view image. * Event Display: Telemetry Strips Please click on link to view image. * Event Display: Telemetry Strips Please click on link to view image. Neurology Consult note * Taylor Quinn: PERFORM Event Display: Neurology Consultation Authored Date: [id number] Pharmacology Progress note * Tayla Garcia PharmD: PERFORM Event Display: Pharmacy Progress Note Authored Date: [id number] Pharmacy Progress Note med rec updated with IP record Gabe ADAMES Electronically Signed on 07/26/22 11:37 AM Tayla Garcia PharmD Respiratory therapy Hospital Progress note * Whitney Leblanc: PERFORM Event Display: Respiratory Therapy Progress Note Authored Date: [id number] ??PABLO ZIMMER 87 Years MEASURED Body Mass Index: 21 kg/m2 (07/22/22 21:36:00) Height: 165 cm (07/22/22 21:36:00) Weight: 52.5 kg (07/25/22 22:50:00) DOSING Height/Length Dosin cm (07/25/22 14:26:04) Weight Dosin.2 kg (07/25/22 14:26:04) Respiratory Shift Summary Breath Sounds: Clear Shift Treatments: None Shift Events: None Respiratory Goals/Plan of Care: ABG???s: Inital _??Settings: End of Shift _Settings: Respirtory Treatment or Medication Changes: Respiratory Protocol??Aerosol Therapy Assessment and Scoring Home Medication Routine: Lung History (1) Smoking history less than 1 pack/day, History of lung disease(Asthma) Breath Sounds (0) Clear in all arteaga Respiratory Rate (1)??19-25 Modified Gennaro Scale or Observed Dyspnea (0) None Oxygen Therapy (0) Room air, at baseline home O2, post-op, or CHF Home Respiratory Medications (0) None Inhaler Use Assessment ? Clinically Stable? Yes? Can take a slow deep breath on command? Yes? Can perform a 3 second breath hold? Yes Respiratory total Score: 1 Respiratory Guidelines 0-2 pts - No Therapy indicated Electronically Signed on 07/26/22 02:13 AM Whitney Leblanc Physician Emergency department Note * Cee Cutler MD: PERFORM Event Display: ED Note Physician Authored Date: [id number] GORAN, PABLO :1935 Age:87 years Sex:Female Visit Date:07/25/2022 Primary Care Physician: Mirna KAYLIN, Adalid Gaspar MD Basic Information Time Seen: Cee Cutler MD / 07/25/2022 10:32 Chief Complaint ? stroke, found by neighbor unresponsive, upon arrival is covered in urine less alert, general weakness History Of Present Illness: Patient recently presented the emergency room with complaints of chest pain. ??She had borderline ST elevations and leakage of troponins. ??Sent to [facility].?? Had a cardiac cath that was clean. ??No intervention performed. ??Patient signed out AMA prematurely. ??Went home.?? Now friend that went to go check on her found her unresponsive in the home.?? Transported by EMS.?? Airway patent and ventilating. ??Now on initial presentation emergency department she is confused slurred speech??inappropriate response to questions. ??Right-sided gaze deviation and left-sided hemiparesis. Review of Systems: Unable to obtain given patient's clinical condition Physical Exam Vitals & Measurements T:??37.2?C ??(Temporal Artery)?? HR:??111??(Monitored)?? RR:??29?? BP:??149/90?? SpO2:??99%?? HT:??165.000??cm?? WT:??57.20??kg??(Estimated)?? O2 Therapy:??Room air?? General: Somnolent speech garbled??moderate distress Eye: Right-sided gaze deviation HENT: Normocephalic,??Normal?? hearing, dry oral mucosa,?No??scleral icterus Neck:?No??JVD Lungs: Non-labored?? respiration Heart:?Normal?? rate,?Regular??rhythm,?No??peripheral edema, Adequate peripheral perfusion Abdomen: Soft, non-tender, non-distended,?Normal?? bowel sounds,?No??masses Musculoskeletal:?Normal?? range of motion and strength,?No??tenderness,?No??swelling Skin:??No??rashes,?No??lesions, Dry Neurologic: Patient follows commands. ??5 out of 5 strength with the right upper and right lower extremity.?? Left-sided hemineglect and full left-sided hemiparesis. ??No strength effort.?? Speech isgarbled. Psychiatric: Medical Decision Making: ? Suspect??large stroke versus intracranial hemorrhage.?? Stat??stroke alert has been called. ?? Patient found to have large right-sided MCA stroke. ??Unclear??as to the cause patient has no history of A. fib and is currently not in A. fib.?? Do not believe it is related to her??cardiac catheterization yesterday.?? As she was last seen normal the night before she is not a tPA candidate.?? Please refer to teleneurology note for??stroke specific??evaluation and recommendation. ?? Per teleneurology's recommendations and I am consulting neuro endovascular??at [facility] to see if they??feel as though an intervention??for clot removal??could be offered to the patient.??Still waiting on return call. ?? Patient with repeat episode of fever. ??Have ordered chest x-ray given a saline bolus of 500 cc??and will order urinalysis. ??Unclear etiology of the patient's fever. ??Flu COVID are negative.?? Haveadministered aspirin per rectum. ?? Consult to neuro endovascular still pending and they have not returned the call x2 hours. ?? Patient has been presented to the hospitalist service as??both??[facility] and [facility] have refused??transfer of this patient secondary to capacity issues.?? Also nurse business change manager contacted several local hospitals with??on staff neurology which we do not have and they have also declined transfer.?? [facility] was also contacted??and they refused againdue to capacity issues. Critical Care Time Spent Total critical care time: Approximately 36 minutes Due to a high probability of clinically significant, life threatening deterioration, the patient required my highest level of preparedness to intervene emergently and I personally spent this criticalcare time directly and personally managing the patient. This critical care time included obtaining a history; examining the patient; pulse oximetry; ordering and review of studies; arranging urgent treatment with development of a management plan; evaluation of patient's response to treatment; frequent reassessment; and, discussions with other providers. This critical care time was performed to assess and manage the high probability of imminent, life-threatening deterioration that could result in multi-organ failure. It was exclusive of separately billable procedures and treating other patients and teaching time. Please see MDM section and the rest of the note for further information on patient assessment and treatment. Procedure No Qualifying Data Assessment/Plan 1.??Stroke??I63.9 2.??Acute right MCA stroke??I63.511 Orders: aspirin, 300 mg = 1 supp, CO, Supp, Once, First Dose: 07/25/22 19:07:00 EST, Stop Date: 07/25/22 19:07:00 EST, Physician Stop, STAT NS bolus, 500 mL, IV Piggyback, Soln-IV, Once, Administer over: 0.5 hr, First Dose: 07/25/22 19:34:00 EST, Stop Date: 07/25/22 19:34:00 EST, Physician Stop, STAT, 999 mL/hr Creatine Kinase, Blood, Routine, 07/25/22 19:06:00 EST, Once, Nurse collect CV EKG ED, 07/25/22 10:54:00 EST, Stat, Reason: ED - empiric, Stop date and time 07/25/22 10:54:00 EST, ORD_SET_REQ_DT_RANGE, Cerner's Internal Person Id CV EKG ED, 07/25/22 10:34:00 EST, Routine, Reason: Chest Pain, Stop date and time 07/25/22 10:34:00EST, ORD_SET_REQ_DT_RANGE, Cerner's Internal Person Id Decision to Admit, 07/25/22 19:33:00 EST, Medical Unit Mis Nursing Task, 07/25/22 10:54:00 EST, Once, Stop date 07/25/22 10:54:00 EST, Head of the Bed at30 degrees Misc Nursing Task, 07/25/22 10:54:00 EST, Once, Stop date 07/25/22 10:54:00 EST, Draw blood [facility] Nursing Task, 07/25/22 10:54:00 EST, Once, Stop date 07/25/22 10:54:00 EST, Weight NPO, 07/25/22 10:54:00 EST, Constant Indicator Peripheral IV Insertion, 07/25/22 10:54:00 EST Peripheral IV Insertion, 07/25/22 10:54:00 EST Pulse Oximetry Continuous, 07/25/22 10:54:00 EST, Stop date 07/25/22 10:54:00 EST XR Chest 1 View, 07/25/22 19:31:00 EST, Stat, Reason: admit, Transport Mode: Stretcher, Exam to be performed outside organization? Medication Reconciliation Unchanged losartan (losartan 25 mg oral tablet) Problem List/Past Medical History Ongoing No qualifying data Historical No qualifying data Allergies tetanus-diphth toxoids (Td) adult/adol Social History Alcohol Current, Wine, Daily Electronic Cigarette/Vaping Electronic Cigarette Use: Never. Tobacco Former tobacco user Tobacco Use:. Lab Results CBC and Differential?? LATEST RESULTS?? HISTORICAL RESULTS?? WBC?? 07/25/22 11:00?? 10.4 ??High?? 07/22/22?? 11.6 ??High?? RBC?? 07/25/22 11:00?? 4.5?? 07/22/22?? 4.4?? Hgb?? 07/25/22 11:00?? 14.4?? 07/22/22?? 14.3?? Hct?? 07/25/22 11:00?? 43.7?? 07/22/22?? 43.3?? MCV?? 07/25/22 11:00?? 98.0 ??High?? 07/22/22?? 97.3 ??High?? MCH?? 07/25/22 11:00?? 32.3 ??High?? 07/22/22?? 32.1 ??High?? MCHC?? 07/25/22 11:00?? 33.0?? 07/22/22?? 33.0?? RDW-CV?? 07/25/22 11:00?? 12.3?? 07/22/22?? 12.2?? Platelets?? 07/25/22 11:00?? 265?? 07/22/22?? 268? Coagulation?? LATEST RESULTS?? HISTORICAL RESULTS?? Prothrombin Time?? 07/25/22 11:00?? 9.8?? 07/23/22?? 10.1?? INR?? 07/25/22 11:00?? 1.0?? 07/23/22?? 1.0?? Partial Thromboplastin Time?? 07/25/22 11:00?? 25?? 07/23/22?? 45 ??High? Routine Chemistry?? LATEST RESULTS?? HISTORICAL RESULTS?? Sodium Level?? 07/25/22 11:00?? 140?? 07/22/22?? 137?? Potassium Level?? 07/25/22 11:00?? 4.6?? 07/22/22?? 3.9?? Chloride Level?? 07/25/22 11:00?? 105?? 07/22/22?? 103?? CO2?? 07/25/22 11:00?? 25?? 07/22/22?? 26?? Alk Phos?? 07/25/22 11:00?? 91?? 07/22/22?? 132?? AST?? 07/25/22 11:00?? 24?? 07/22/22?? 23?? ALT?? 07/25/22 11:00?? 16?? 07/22/22?? 20?? BUN?? 07/25/22 11:00?? 28 ??High?? 07/22/22?? 26 ??High?? Glucose Level?? 07/25/22 11:00?? 126 ??High?? 07/22/22?? 162 ??High?? Creatinine Level?? 07/25/22 11:00?? 1.11 ??High?? 07/22/22?? 1.26 ??High?? eGFR AA?? 07/25/22 11:00?? 48 ??Low?? 07/22/22?? 42 ??Low?? eGFR Non-AA?? 07/25/22 11:00?? 48 ??Low?? 07/22/22?? 42 ??Low?? Calcium Level?? 07/25/22 11:00?? 9.6?? 07/22/22?? 9.6?? Protein Total?? 07/25/22 11:00?? 7.6?? 07/22/22?? 7.5?? Albumin Level?? 07/25/22 11:00?? 3.4?? 07/22/22?? 3.7?? Bilirubin Total?? 07/25/22 11:00?? 0.7?? 07/22/22?? 0.3?? Glucose POC?? 07/25/22 11:03?? 131 ??High? Cardiac Isoenzymes?? LATEST RESULTS?? HISTORICAL RESULTS?? Troponin-I?? 07/25/22 11:00?? 955.3 ??Critical?? 07/23/22?? 6172.3 ??Critical? Infectious Disease?? LATEST RESULTS?? SARS-CoV-2 (COVID-19) RNA (ID Now)?? 07/25/22 16:38?? Not Detected? 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 Pt needs constant cues and support for upright sitting. I hope to keep getting better. Pain: No pain reported OBJECTIVE MEASURES/INTERVENTION: *Procedure Documentation: CPT 85026: Therapeutic Activities - Direct 1:1 :??15?? minutes Therapeutic activities to improve functional performance of ADL specific activities such as: Treatment techniques utilized today included: Sit to stand: completed 4x max A x2 with L knee and foot block - utilized hemiwalker in RUE, patient again picks up hemiwalker despite sig cuing and education on use. Sit to supine and supine to sit: max A x1 for LE and trunk management *Patient Education: Hemiwalker use and proper technique. Educated on left side neglect along with importance of continuing to try to move LLE and LUE. *Physical Therapy Assessment: Patient able to perform sit to stands x4 with maxA of 2. Pt has sig difficulty with hemiwalker use and may benefit from use of FWW with platform if cleared by MD. Pt continues to be very motivated toregain PLOF. Pt has poor awareness of sitting position and needs sig cues for midline. Pt to DC to [facility] tomorrow. *PT Plan: continue per POC. 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 Patient is looking forward to DCing to rehab and continuing to make improvements. Pt reports she has had a bout of incontinence so PT and psychiatric nursing assistant help with pt hygiene with rolling strategy. Pt feels stronger sitting than yesterday. Pt is very emotional and tearful due to decrease in function. Pain: Pt does not report pain at this time. OBJECTIVE MEASURES/INTERVENTION: *Procedure Documentation: CPT 79669: Therapeutic Activities - Direct 1:1 :??23 minutes Therapeutic activities to improve functional performance of ADL specific activities such as: Weight shifting in sitting; reaching with R UE in sitting Toileting/ rolling/ weight shifting in supine Perturbations in sitting to facilitate trunk control *Patient Education: Educated on goals of PT and prognosis. *Physical Therapy Assessment: Pt has improved with sitting stability and was able to sit for short bouts of 5- 10 seconds with hand on bed rail without physical assist. Very light perturbations applied as well as cues to improve midline position. Pt should discharge to short term rehab for best functional mobility prognosis. *PT Plan: continue per POC. 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 Pain: Reports that she would like to get off of her right hip. OBJECTIVE MEASURES/INTERVENTION: *Procedure Documentation: CPT 91962: Therapeutic Exercise:??13 minutes Therapeutic exercise to promote improved joint stability, strength, endurance, and range of motion for functional ADL???s such as: Transfers, bed mobility, and ambulation. Specific education/trainingprovided: Patient's bed in chair position; PT had patient perform supine exercises: 10 to 15 reps each, with assist for left lower extremity: SLR, ankle pumps (total assist on left), bilateral hip ABD and adduction, heel slides, and hip flexion. PT educated patient on looking at her left leg while PT was performing the exercises for the left lower extremity. CPT 45657: Therapeutic Activities - Direct 1:1 :??10?? minutes Therapeutic activities to improve functional performance of ADL specific activities such as: Treatment techniques utilized today included: Sit to stand: completed 3x max A x1 with L knee and foot block - utilized hemiwalker in [facility], patient did not understand what to do with it and picked it up Stand pivot transfer max A x2 from chair to bed Sit to supine: max A x2 for LE and trunk management *Patient Education: Educated on left side neglect along with importance of continuing to try to move LLE and LUE. *Physical Therapy Assessment: Patient completed 3 sit to stands this date with max A x2. She was very motivated throughout session. Utilized lauren-walker for sit to stands. Did not use any AD for stand pivot transfer. Patient noted to have muscle activation of hip flexors, quad, and dorsiflexors with bed exercises this date. Shewas able to actively push knee straight from hooklying position. She does become tearful at times throughout session. Patient would benefit from higher intensity environment, recommending STR at thistime. *PT Plan: continue per POC. *Time In: 1:50 PM *Time Out: 2:15 PM *Total Time: 25 min Electronically Signed on 07/31/22 03:02 PM StimDina richter PT, DPT Nutrition and dietetics Progress note * Leanne Gordillo RD: PERFORM Event Display: Nutrition Note Authored Date: [id number] Nutrition Recommendations Patient is progressing with [employer] diet advanced to mechanical ??soft, ground meats, thin liquids. tolerating well, eats slowly. not requiring formula will continue to monitor for supplement needs. May benefit from snacks between meals as tolerated to help meet energy and protein needs. Nutrition Risk Level moderate-high Assessment and Monitoring follow up 1-3x/week and as needed. Monitor labs, vitals, weight, intake. Nutrition Diagnosis inadequate oral intake related to stroke as evidenced by dysphagia. Nutrition Goals 0083-1415 kcal/day 0.8-1.0g protein/kg/day tolerate 50% of meals or more with weight maintenance. Nutrition Interventions encourage small frequent high energy high protein meals and snacks. may benefit from nutrition supplement will continue to monitor modified textures per [employer] Anthropometrics/Estimated Needs Kutwni53.3 kg(Recorded: 08/01/2022 06:19 EST) Reason for Visit right MCA CVA, afib with RVR, UTI Problem List/Past Medical History Ongoing NSTEMI (non-ST elevated myocardial infarction) Unspecified dementia, mild, with anxiety Historical No qualifying data Social History Alcohol Current, Wine, Daily Electronic Cigarette/Vaping Electronic Cigarette Use: Never. Tobacco Former tobacco user Tobacco Use:. Diet Orders Diet Order, 07/31/22 8:37:00 EST, Dysphagia, Mechanical Soft, Ground meat. Thin liquids via cup sips with all meals, snacks and meds. May use straw when there is no PO intake. Meds whole one at a time with cup sip. See [employer] Swallow Recs Allergies tetanus-diphth toxoids (Td) adult/adol Nutrition Lab Results Test Name Test Result Date/Time WBC 7.6 x10^3/mcL 07/27/2022 06:45 EST Hgb 12.0 g/dL 07/27/2022 06:45 EST Hct 37.6 % 07/27/2022 06:45 EST MCV 100.0 07/27/2022 06:45 EST Platelets 205 x10^3/mcL 07/27/2022 06:45 EST INR 1.0 07/25/2022 11:00 EST Partial Thromboplastin Time 25 seconds 07/25/2022 11:00 EST Sodium Level 140 mmol/L 07/27/2022 06:45 EST Potassium Level 3.8 mmol/L 07/27/2022 06:45 EST Chloride Level 110 mmol/L 07/27/2022 06:45 EST CO2 23 mmol/L 07/27/2022 06:45 EST Alk Phos 91 unit/L 07/25/2022 11:00 EST ALT 16 unit/L 07/25/2022 11:00 EST BUN 28 mg/dL 07/27/2022 06:45 EST Glucose Level 93 mg/dL 07/27/2022 06:45 EST Creatinine Level 1.01 mg/dL 07/27/2022 06:45 EST Albumin Level 3.4 g/dL 07/25/2022 11:00 EST Bilirubin Total 0.7 mg/dL 07/25/2022 11:00 EST Magnesium Level 2.0 mg/dL 07/26/2022 03:26 EST Medications Inpatient aspirin, 81 mg= 1 tab, Oral, Daily atorvastatin, 10 mg= 1 tab, Oral, With Evening Meal lidocaine 1% injectable solution, 5 mg= 0.5 mL, Intradermal, As Directed, PRN Lopressor, 5 mg= 5 mL, IV Push, every 5 min, PRN Lopressor, 5 mg= 5 mL, IV Push, every 6 hr Normal Saline Flush, 10 mL, IV Push, every 12 hr (preeti) ondansetron, 4 mg= 2 mL, IV Push, every 6 hr, PRN Tylenol, 650 mg= 2 tab, Oral, every 6 hr, PRN Home losartan 25 mg oral tablet, 25 mg= 1 tab, Oral, every evening Hampton-3 Fish Oil, 1 cap, Oral, Daily PreserVision AREDS 2 oral capsule, 1 cap, Oral, BID Ventolin HFA 90 mcg/inh inhalation aerosol, 2 puffs, Inhale, every 5 hr, PRN Vitamin D3 1000 intl units oral tablet, 62.5 mcg= 2.5 tab, Oral, Daily Electronically Signed on 08/01/22 11:[address] Progress note * Alan Holden MD: PERFORM Event Display: Progress Note - Physician Authored Date: [id number] GORANPABLO :1935 Age:87 years Sex:Female Visit Date:07/25/2022 Primary Care Physician: Mirna [facility], Adalid Gaspar MD Subjective The patient is being seen examined as a follow-up for acute right MCA stroke, UTI,??atrial fibrillation,??NSTEMI??as well as dementia. ??Patient is able to move her left lower extremity slightly moretoday. ??There are otherwise no acute events overnight. ??Continues to work with PT and OT.?? Patient denies any fevers or chills, chest pain, shortness of breath, abdominal pain, nausea, vomiting, diarrhea, lightheadedness or dizziness, cough, blurry vision.?? Continues to have left-sided neglect. Objective Vitals & Measurements T:??37.2?C ??(Temporal Artery)?? TMIN:??36.9?C ??(Temporal Artery)?? TMAX:??37.6?C ??(Temporal Artery)?? HR:??74??(Peripheral)?? RR:??18?? BP:??131/61?? SpO2:??97%?? WT:??55.3??kg?? Pain Score:??0?? O2 Therapy:??Room air?? Physical Exam General:??Alert and oriented, frail-appearing female??no??acute distress Eye:??PERRL, EOMI,?Normal??conjunctiva, left-sided neglect HENT:??Normocephalic, clear tympanic membranes,?Normal?hearing, moist oral mucosa,?No??scleral icterus,?No??sinus tenderness Neck:??Supple, non-tender,?No??carotid bruits,?No??JVD,?No??lymphadenopathy Lungs:??Clear to auscultation and percussion,?Non-labored?respiration Heart:?Normal?rate,?Regular??rhythm,?No??murmur,?No??gallop,?N o??edema Abdomen:??Soft, non-tender, non-distended,?Normal?bowel sounds,?No??masses Musculoskeletal:?Normal?range of motion and strength,?No??tenderness,?No??swelling Skin:??Skin is warm, dry and pink,?No??rashes,?No??lesions Neurologic:??Awake, alert and oriented X??2,??patient with??left lower extremity weakness although improved today??approximately 2 out of 5, left upper extremity is unable to be moved, sensation intact Psychiatric:??Cooperative, appropriate mood and affect Assessment/Plan 1.??Acute ischemic right MCA stroke??I63.511 Patient with acute ischemic right MCA stroke??was not a thrombolytic candidate due to the size and age of infarct.?? Strength in left lower extremity is improving slowly.?? Continues to work with PT and OT.?? Dysphagia has improved. ??Continue??oral??diet and medications.?? Awaiting for??bed/placement. 2.??UTI (urinary tract infection)??N39.0 Completed antibiotic regimen. 3.??Atrial fibrillation with RVR??I48.91 Briefly in A. fib with RVR now back in sinus rhythm. ??Not on anticoagulation due to the size of her stroke. 4.??Febrile??R50.9 Resolved. 5.??NSTEMI (non-ST elevated myocardial infarction)??I21.4 Non-ST??elevation RI approximately 2 weeks ago and negative cath??and intact EF. 6.??Unspecified dementia, mild, with anxiety??F03.A4 Stable. Electronically Signed on 08/01/22 01:58 PM Alan Holden MD * [facility] PER[facility] Event Display: Progress Note - Physician Authored Date: [id number] PABLO ZIMMER :1935 Age:87 years Sex:Female Visit Date:07/25/2022 Primary Care Physician: [facility], Adalid Gaspar MD Subjective Sitting up, eating [facility] soft breakfast without difficulty (but slow).?? Asks about rehab availability.?? Denies having discomfort except that??she reports that she has the wrong shoes here in the shoes hurt her feet.?? No dyspnea or cough. Objective Vitals & Measurements T:??36.8?C ??(Temporal Artery)?? TMIN:??36.7?C ??(Temporal Artery)?? TMAX:??37.3?C ??(Temporal Artery)?? HR:??80??(Peripheral)?? RR:??20?? BP:??118/71?? SpO2:??96%?? WT:??58.2??kg?? Pain Score:??0?? O2 Therapy:??Room air?? Physical Exam Alert and oriented as noted.?? Able to converse well.?? She??understands that she is not going straight home, did not require prompting??about that from me.?? Still has dense left hemiparesis including??left-sided facial weakness. ?? Neck is supple no increased JVP ?? Lungs are??clear, no rhonchi or rales, respirations unlabored ?? Cor reg - no mm ?? No pedal edema ?? No skin breakdown. Assessment/Plan 1.??Acute ischemic right MCA stroke??I63.511 Was not a thrombolytic candidate due to size and age of infarct.?? Making slow progress with rehab.?? Unfortunately, has gotten a rehab declined this patient and we are now looking at local??SNF facilities for her rehab. ??Her dysphagia has improved and she can now do crushed??oral meds. ??I am discontinuing her IV Tylenol in favor of oral as needed.?? To reduce stroke recurrence I am now starting atorvastatin and??low-dose aspirin. 2.??UTI (urinary tract infection)??N39.0 Was febrile on admission and grew E. coli from urine.?? Will complete antibiotics tomorrow. 3.??Atrial fibrillation with RVR??I48.91 Patient was only briefly in AF, now back in sinus rhythm.?? Not anticoagulated due to the size of her stroke, but this should be added in the future. 4.??Febrile??R50.9 Resolved 5.??NSTEMI (non-ST elevated myocardial infarction)??I21.4 Patient had a non-ST JOSE??2 weeks prior to this admission, had a negative cath and intact EF. ??She??should be able to take crushed pills now and I am going to resume??atorvastatin and aspirin. 6.??Unspecified dementia, mild, with anxiety??F03.A4 Stable and patient remains quite functional. Orders: Tylenol, 650 mg = 2 tab, Oral, Tab, every 6 hr, PRN pain, First Dose: 07/31/22 8:22:00 EST, Routine aspirin, 81 mg = 1 tab, Oral, Tab-Chew, Daily, First Dose: 07/31/22 9:00:00 EST, Routine atorvastatin, 10 mg = 1 tab, Oral, Tab, With Evening Meal for 30 days, First Dose: 07/31/22 18:30:00 EST, Stop Date: 08/30/22 18:29:00 EST, Physician Stop, Routine Electronically Signed on 07/31/22 08:37 AM [facility] * Toby Cao DO: PERFORM Event Display: Progress Note - Physician Authored Date: [id number] PABLO ZIMMER :1935 Age:87 years Sex:Female Visit Date:07/25/2022 [facility] Subjective Today she told the nurse that she was going home.?? She does not seem to recognize her degree of dysfunction.?? She has paralysis on her left side and a??substantial left neglect. Review of Systems Left-sided paralysis and left neglect.?? Denies chest pain, dyspnea, palpitations, dizziness, headaches, sudden visual changes, cough, or new peripheral edema. Objective Vitals & Measurements T:??36.8?C ??(Temporal Artery)?? TMIN:??36.7?C ??(Temporal Artery)?? TMAX:??37.2?C ??(Temporal Artery)?? HR:??76??(Peripheral)?? RR:??18?? BP:??108/55?? SpO2:??97%?? Pain Score:??0?? O2 Therapy:??Room air?? Physical Exam General: Alert elderly woman with gaze deviated to the??right??and left-sided??paralysis;??negativeblink to threat on the left HEENT: Normocephalic Cardiovascular: S1-S2; ??no noted murmurs, rubs or gallops??irregularly irregular Pulmonary: Good air movement bilaterally with no wheezes, rales or rhonchi Skin: Warm and dry; no rashes Neurological: Right gaze deviation with??left-sided??paralysis Musculoskeletal: No edema; no obvious arthropathy Psych: Poor insight into her degree of??dysfunction Assessment/Plan 1.??Acute ischemic right MCA stroke??I63.511 1.??Acute ischemic right MCA stroke??I63.511 ??Planning to discharge to [facility] rehab??when bed available.?? Hopefully this can happen thisweek.?? She has a fairly??dense paralysis on the left and left neglect.?? She is motivated to improve??but??at 87,??she has??a challenge ahead.?? CT scan showed a large right middle cerebral artery infarct. She hopes to return home to independent living but this??seems unlikely. ?? 2.??UTI (urinary tract infection)??N39.0 ??Did not tolerate the oral??cephalexin and this was changed to??ceftriaxone.?? Will treat for total of 4 days??with the last dose tomorrow morning. ?? 3.??Atrial fibrillation with RVR??I48.91 ??Holding anticoagulation at this time due to concerns for??hemorrhagic transformation??in the short-term. ?? 4.??Febrile??R50.9 ??Resolved ?? 5.??Rhabdomyolysis??M62.82 ??Resolved ?? 6.??NSTEMI (non-ST elevated myocardial infarction)??I21.4 ??Negative catheterization reported??after??NSTEMI 2 weeks ago. ?? 7.??Unspecified dementia, mild, with anxiety??F03.A4 Reportedly very mild??baseline dementia before this??fairly devastating stroke. 2.??UTI (urinary tract infection)??N39.0 3.??Atrial fibrillation with RVR??I48.91 4.??Febrile??R50.9 5.??Rhabdomyolysis??M62.82 6.??NSTEMI (non-ST elevated myocardial infarction)??I21.4 7.??Unspecified dementia, mild, with anxiety??F03.A4 Orders: cefTRIAXone, 1 g = 1 EA, IV Piggyback, Powder-Inj, every 24 hr, Antibiotic Indication Urinary TractInfection, Administer over: 0.5 hr, First Dose: 07/31/22 11:00:00 EST, Stop Date: 07/31/22 15:00:00EST, Physician Stop, Routine, 200 mL/hr Disposition:??Planning to discharge to [facility] rehab??. Electronically Signed on 07/30/22 04:24 PM Toby Cao DO History and physical note * Evie Baker NURSE ANESTHETIST: PERFORM, MODIFY, MODIFY, MODIFY Event Display: History and Physical Authored Date: [id number] PABLO ZIMMER :1935 Age:87 years Sex:Female Visit Date:07/25/2022 Primary Care Physician: Adalid Mckay MD Chief Complaint ? stroke, found by neighbor unresponsive, upon arrival is covered in urine less alert, general weakness History of Present Illness Pt is a 87-yr-old female with??a PMH??that is relevant for Memory impairment only??who was brought to the ED via EMS after a friend found her on the floor unresponsive. History was gathered from ERP & EMR as the pt is somewhat unresponsive & mumbles when asked questions. She is noted to have RT facial drooping and has LT sided weakness and LT visual neglect. Per ERP, pt had initially presented to the [facility]ED on 07/22/22 with complaints of chest pain and found to have elevated troponin on further evaluation.??She was ultimately transferred to [facility] where she underwent??cardiac catheterization??and there was no occlusive??disease found. She??apparently left there on 07/24 AMA.??Pt does not have close family members, lives independently??but has two close friends who check on her. PerERP, pt's friends states that??she has always??expressed the desire for her family members NOT??to be involved in her life or??during illness. Today, apparently her neighbor downstairs ??hadn't heardany movement from her apartment??, became concerned and called??the pt's friend who came to check on her and found her on the ground.??On arrival??to ED, she was febrile with temp of 38.9, tachycardic in the 110s. Labs involving CBC &??CMP??& respiratory panel were unremarkable. CK was minimally elevated at 311. Troponin even though was elevated at 955,??it had downtrended from previous value of 6173. CT??of the head??obtained showed??a Large?? middle cerebral artery??infarct. CTA??of the head and neck showed: Occlusion of right middle cerebral artery??& Large right MCA infarct &??approximately 40% right ICA stenosis and 60% left ICA stenosis??proximally. ERP??consulted [facility] ??Teleneurology who felt that the pt was not a thrombolytic therapy candidate and??even though endovascular consultation was recommended,??the teleneurologist??felt that they would likely??not intervene given the large size of the stroke.??From??teleneurology standpoint, the best that could be offered was aspirin rectally and watch for CVA??to complete. Pt will be admitted for the??arrangement oflong-term management of stroke such as rehabilitation,??nutrition, swallowing, placement finding and assessment??of prognosis. ? Review of Systems ROS unobtainable due to AMS. Physical Exam Vitals & Measurements T:??37.6?C ??(Temporal Artery)?? TMIN:??37.2?C ??(Temporal Artery)?? TMAX:??38.9?C ??(Temporal Artery)?? HR:??101??(Peripheral)?? RR:??24?? BP:??141/92?? SpO2:??99%?? HT:??165.000??cm?? WT:??52.5??kg?? O2 Therapy:??Room air?? General:??somnolent, elderly,??No??acute distress Eye: Left visual neglect. HENT: Normocephalic,,?? Neck: Supple, non-tender,?No??lymphadenopathy Lungs: Clear to auscultation and percussion,?Non-labored?? respiration Heart:?Abnormal?? rate,?Irregular??rhythm,?No??murmur,?No??gallop,?No??edema Abdomen: Soft, non-tender, non-distended,?Normal?? bowel sounds,?No??masses Musculoskeletal:?Abnormal?? No ROM on LUE??& LLE,?No??tenderness,?No??swelling Skin: scattered bruising. Neurologic: GCS score of 6. LT sided weakness. LT facial drooping. Psychiatric: unable to assess. Assessment/Plan 1.??Acute ischemic right MCA stroke??I63.511 -Per [facility] teleneurology, best that can be offered is aspirin rectally and watch for the??CVA??to complete. Will start making arrangement for long-term management of stroke; placement, nutrition, rehabilitation, aspiration precautions, assessment of prognosis -PT/OT/Speech eval. -Pt has very limited socia support. No family members involved, has two close friends. ?? 2.??UTI (urinary tract infection)??N39.0 -UA positive for nitrites & Mod. bacteria. Started on Rocephin 1gm q 24 and will narrow down based on C & S results. ?? 3.??Atrial fibrillation with RVR??I48.91 -New onset A-fib with RVR in the 140's. Started on Metoprolol 5mg IV q 6 hrs. May need to consult Neurology if anticoagulation is appropriate or when it can be introduced. -Check TSH -BNP- 309 on 07/21. -Obtain Echo records from [facility]. -Check Mg level. ?? 4.??Febrile??R50.9 -Sources could be from infectious causes such as??UTI or also likely from the CVA. CXR was negativeof acute findings.??Aim for Normothermia as hyperthermia may worsen cerebral ischemia. Will therefore start her on scheduled IV Tylenol for at least 48-72hrs. -Follow blood cultures. ?? 5.??Discharge planning issues??Z02.9 - Neurological deficits & Arrhythmia ??need to be stable.??Pt has no family support and dependson two of her friends & therefore would benefit from placement finding. ?? 6.??Rhabdomyolysis??M62.82 -Minimally elevated at 311 & will provide IVF hydration with LR ?? Orders: Tylenol, 1,000 mg = 100 mL, IV Piggyback, Soln-IV, every 6 hr, Administer over: 15 minutes, First Dose: 07/26/22 3:00:00 EST, Routine, 400 mL/hr !-Rocephin, 1 g = 1 EA, IV Piggyback, Powder-Inj, every 24 hr, Antibiotic Indication Urinary Tract Infection, Administer over: 0.5 hr, First Dose: 07/26/22 1:00:00 EST, Routine, 200 mL/hr Lactated Ringers Injection 1,000 mL, Total Volume (mL): 1,000, 1,000 mL, Soln, IV, 125 mL/hr, StartDate: 07/25/22 20:07:00 EST, 57.2 kg, Populate Charting Weight From Order, 1.62, m2 lidocaine 1% injectable solution, 5 mg 0.5 mL, Intradermal, Soln, As Directed, PRN other (see comment), First Dose: 07/25/22 20:04:00 EST, STAT Lopressor, 5 mg = 5 mL, IV Push, Soln, every 5 min for 3 doses, PRN not specified, First Dose: 07/26/22 2:22:00 EST, Stop Date: Limited # of times, Physician Stop, Routine Lopressor, 5 mg, IV Push, Soln-IV, every 6 hr, First Dose: 07/26/22 6:00:00 EST, Routine ondansetron, 4 mg = 2 mL, IV Push, Soln, every 6 hr, PRN nausea/vomiting, First Dose: 07/25/22 20:04:00 EST, STAT Normal Saline Flush, 10 mL, IV Push, Soln, every 12 hr (preeti), First Dose: 07/25/22 20:04:00 EST, STAT Sodium Chloride 0.9% 1,000 mL, Total Volume (mL): 1,000, 1,000 mL, Soln-IV, IV, 30 mL/hr, Start Date: 07/25/22 20:04:00 EST, 57.2 kg, Populate Charting Weight From Order, 1.62, m2 Basic Metabolic Panel, Blood, Routine, 07/26/22 6:00:00 EST, every morning, for 3 days, Lab Collect Blood Culture, Peripheral Blood, Routine collect, RT - Routine, 07/26/22 6:00:00 EST, Once, Nurse collect, Print Label Blood Culture, Peripheral Blood, Routine collect, RT - Routine, 07/26/22 6:00:00 EST, Once, Nurse collect, Print Label Cardiac Monitoring, 07/25/22 20:04:00 EST, Telemetry CBC w/ Diff, Blood, Routine, 07/26/22 6:00:00 EST, every morning, for 3 days, Lab Collect Creatine Kinase, Blood, Routine, 07/26/22 6:00:00 EST, Once, Lab Collect Diet Order, 07/25/22 20:04:00 EST, NPO Electrocardiogram 12 Lead, 07/26/22 2:11:00 EST, MENG, Stop date 07/26/22 2:11:00 EST Intake and Output, 07/25/22 20:04:00 EST, every 8 hrs, Constant Indicator, 07/25/22 20:04:00 EST Magnesium Level, Blood, Add On, 07/26/22 3:30:00 EST, Once, Lab Collect Neurological Checks, 07/25/22 20:04:00 EST, every 4 hr, 07/25/22 21:00:00 EST OT Evaluation and Treatment Acute., 07/25/22 20:04:00 EST, Once Oxygen Therapy, SpO2 goal 90% or greater, PRN PSO Admit to Inpatient, Semi-Private, Inpatient, [facility], Toby Anton DO, 07/25/22 20:01:00 EST, 07/25/22 20:01:00 EST, 07/25/22 20:01:00 EST, 2 midnights or more PT Evaluation and Treatment Acute., 07/25/22 20:04:00 EST, Once Resuscitation Status, 07/25/22 20:04:00 EST, Full Code Resuscitation Status, 07/26/22 1:01:00 EST, Do Not Resuscitate ST Evaluation and Treatment Acute., 07/25/22 20:04:00 EST Troponin-I, Blood, Timed Study, 07/25/22 20:04:00 EST, every 6 hr, for 18 hr, Lab Collect TSH w/ Rflx to Free T4, Blood, Routine, 07/26/22 6:00:00 EST, Once, Lab Collect Up to Chair, 07/25/22 20:04:00 EST, TID w/ Meals Up with Assistance, 07/25/22 20:04:00 EST, Constant Order Urine Culture, Urine, Routine collect, RT - Routine, 07/25/22 20:20:00 EST, Once, Nurse collect, Collected, 07/25/22 20:20:00 EST, Print Label, [id number] Vital Signs, 07/25/22 20:04:00 EST, Constant order, every 4 hrs Weight, 07/25/22 20:04:00 EST, Daily Problem List/Past Medical History Ongoing No qualifying data Historical No qualifying data Medications Inpatient !-Rocephin Lactated Ringers Injection 1,000 mL, 1000 mL, IV lidocaine 1% injectable solution, 5 mg= 0.5 mL, Intradermal, As Directed, PRN Lopressor, 5 mg= 5 mL, IV Push, every 5 min, PRN Lopressor, 5 mg, IV Push, every 6 hr Normal Saline Flush, 10 mL, IV Push, every 12 hr (preeti) ondansetron, 4 mg= 2 mL, IV Push, every 6 hr, PRN Sodium Chloride 0.9% 1,000 mL, 1000 mL, IV Tylenol, 1000 mg= 100 mL, IV Piggyback, every 6 hr Home losartan 25 mg oral tablet Allergies tetanus-diphth toxoids (Td) adult/adol Social History Alcohol Current, Wine, Daily Electronic Cigarette/Vaping Electronic Cigarette Use: Never. Tobacco Former tobacco user Tobacco Use:. Diagnostic Results ? CT Brain/Head Stroke Protocol Addendum created by Heidi Kapoor MD on 07/25/2022 11:50:55 AM EST: Critical results: THIS REPORT CONTAINS FINDINGS THAT MAY BE CRITICAL / URGENT (stroke?? protocol) TO PATIENT CARE. The findings were verbally communicated?? via telephone conference with CEE CUTLER at 11:50 AM EST on?? 07/25/2022. The findings were acknowledged and understood. ? Initial report created on 07/25/2022 11:47:54 AM EST: ?? PROCEDURE INFORMATION:?? Exam: CT Head Without Contrast?? Exam date and time: 07/25/2022 11:11 AM?? Age: 87 years old?? Clinical indication: Stroke-like symptoms; Additional info: L?? hemiparesis? TECHNIQUE:?? Imaging protocol: Computed tomography of the head without contrast.?? Radiation optimization: All CT scans at this facility use at least?? one of these dose optimization techniques: automated exposure?? control; mA and/or kV adjustment per patient size (includes targeted?? exams where dose is matched to clinical indication); or iterative?? reconstruction.?? Other technique: STROKE PROTOCOL was implemented.? COMPARISON:?? MR BRAIN WO CONTRAST 06/27/2022 2:57 PM? FINDINGS:?? Brain: See Vasculature finding.?? Cerebral ventricles: No ventriculomegaly.?? Paranasal sinuses: Small left maxillary sinus retention cyst or?? polyp. Amount of mucosal thickening in maxillary sinuses and right?? anterior ethmoid air cells.?? Mastoid air cells: ??No significant mastoid effusion.? Bones/joints: ??No acute fracture.?? Soft tissues: Unremarkable as visualized.?? Vasculature: There is a large right middle cerebral artery infarct?? involving portions of both anterior and posterior trunks. There is?? likely small amount of hyperdensity in middle cerebral artery?? branches which may indicate thrombus. There is no evidence of?? hemorrhagic transformation. There is local mass effect with?? effacement of adjacent sulci. No midline shift.? IMPRESSION:?? Large right middle cerebral artery infarct. No hemorrhage.? ASSESSMENT:?? ASPECTS (Alice Stroke Program Early CT Score) is 4 to 5.? Report signed by: Heidi Kapoor On 07/25/2022 ??11:50:55 ?? [1] ?? CT Angio Brain and Neck Addendum created by Heidi Kapoor MD on 07/25/2022 11:51:06 AM EST: Critical results: THIS REPORT CONTAINS FINDINGS THAT MAY BE CRITICAL / URGENT (stroke?? protocol) TO PATIENT CARE. The findings were verbally communicated?? via telephone conference with CEE CUTLER at 11:51 AM EST on?? 07/25/2022. The findings were acknowledged and understood. ? Initial report created on 07/25/2022 11:47:32 AM EST: ?? PROCEDURE INFORMATION:?? Exam: CTA Head With Contrast, Arteriography?? Exam date and time: 07/25/2022 11:13 AM?? Age: 87 years old?? Clinical indication: L hemiparesis? TECHNIQUE:?? Imaging protocol: Computed tomographic angiography of the head with?? contrast. Exam focused on the arteries.?? 3D rendering (Not supervised by radiologist): MIP and/or 3D?? reconstructed images were created by the technologist.?? Radiation optimization: All CT scans at this facility use at least?? one of these dose optimization techniques: automated exposure?? control; mA and/or kV adjustment per patient size (includes targeted?? exams where dose is matched to clinical indication); or iterative?? reconstruction.?? Contrast material: OMNIPAQUE 350; Contrast volume: 100 ml; Contrast?? route: INTRAVENOUS (IV); ? COMPARISON:?? CT HEAD STROKE PROTOCOL 07/25/2022 11:11 AM? FINDINGS:? ANTERIOR CIRCULATION:?? Right internal carotid artery: There is calcification of right?? intracranial internal carotid artery without hemodynamically?? significant stenosis or occlusion.?? Right middle cerebral artery: The right middle cerebral artery shows?? a broad caliber change and occlusion at distal M1?? segment/trifurcation. There is some reconstitution M2 and M3 branches?? which are smaller in caliber than normal branches on contralateral?? side. There is a large right middle cerebral artery infarct. No?? evidence of hemorrhagic transformation.?? Right anterior cerebral artery: No occlusion or significant stenosis.?? No aneurysm. ? Left internal carotid artery: There is calcification of left?? intracranial ICA without hemodynamically significant stenosis or?? occlusion.?? Left middle cerebral artery: No occlusion or significant stenosis. No?? aneurysm. ?? Left anterior cerebral artery: No occlusion or significant stenosis.?? No aneurysm. ? POSTERIOR CIRCULATION:?? Right vertebral artery: No occlusion or significant stenosis. No?? aneurysm. ?? Left vertebral artery: No occlusion or significant stenosis. No?? aneurysm. ?? Basilar artery: No occlusion or significant stenosis. No aneurysm.?? Right posterior cerebral artery: No occlusion or significant?? stenosis. No aneurysm. ?? Left posterior cerebral artery: No occlusion or significant stenosis.?? No aneurysm. ? Brain: ??See MCA.?? Cerebral ventricles: No ventriculomegaly.?? Bones/joints: Unremarkable. No acute fracture.?? Soft tissues: Unremarkable.? IMPRESSION:?? 1. Occlusion of right middle cerebral artery near trifurcation with?? some distal reconstitution.?? 2. Large right MCA infarct.? PROCEDURE INFORMATION:?? Exam: CTA Neck With Contrast?? Exam date and time: 07/25/2022 11:13 AM?? Age: 87 years old?? Clinical indication: L hemiparesis? TECHNIQUE:?? Imaging protocol: Computed tomographic angiography of the neck with?? contrast.?? 3D rendering (Not supervised by radiologist): MIP and/or 3D?? reconstructed images were created by the technologist.?? Radiation optimization: All CT scans at this facility use at least?? one of these dose optimization techniques: automated exposure?? control; mA and/or kV adjustment per patient size (includes targeted?? exams where dose is matched to clinical indication); or iterative?? reconstruction.?? Contrast material: OMNIPAQUE 350; Contrast volume: 100 ml; Contrast?? route: INTRAVENOUS (IV); ? COMPARISON:?? CT HEAD STROKE PROTOCOL 07/25/2022 11:11 AM? FINDINGS:?? Right common carotid artery: No stenosis. No dissection or occlusion.?? Right internal carotid artery: There is plaque at right proximal ICA?? and carotid bifurcation. There is approximately 40% proximal?? stenosis. No occlusion or thrombosis. No evidence of dissection.?? Right external carotid artery: No occlusion or stenosis of the?? origin. ? Left common carotid artery: No stenosis. No dissection or occlusion.?? Left internal carotid artery: There is plaque at left proximal ICA?? and carotid bifurcation. There is approximately 60% origin stenosis.?? No occlusion or thrombosis. No evidence of dissection.?? Left external carotid artery: No occlusion or stenosis of the origin.? Right vertebral artery: No stenosis. No dissection or occlusion.?? Left vertebral artery: No stenosis. No dissection or occlusion.? Aorta: There is atherosclerotic change in aorta and great vessel?? origins. No aortic aneurysm or dissection. No significant stenosis?? great vessel origins arising from aortic arch.? Soft tissues: Normal. No significant soft tissue swelling.? Bones/joints: There are degenerative changes in spine.? Other findings: Bilateral subclavian arteries are widely patent.? IMPRESSION:?? Approximately 40% right ICA stenosis and 60% left ICA stenosis?? proximally.? REFERENCES:?? NASCET CRITERIA. The degree of stenosis in the cervical segment of?? the internal carotid artery is based on NASCET criteria. Normal is no?? stenosis. Mild is less than 50% stenosis. Moderate is 50-69%?? stenosis. Severe is 70% to 99% stenosis. Total occlusion is no?? detectable patent lumen.? Report signed by: Heidi Kapoor On 07/25/2022 ??11:51:06 [2] ?? XR Chest 1 View PROCEDURE INFORMATION:?? Exam: XR Chest?? Exam date and time: 07/25/2022 7:35 PM?? Age: 87 years old?? Clinical indication: Admit? TECHNIQUE:?? Imaging protocol: Radiologic exam of the chest.?? Views: 1 view.? COMPARISON:?? CR XR CHEST 1 VW 07/22/2022 10:10 PM? FINDINGS:?? Lungs: Lungs are symmetrically hyperinflated. There is persistent?? diffuse coarsening of the interstitial markings. Skin fold is noted?? projecting over the peripheral right hemithorax with slightly more?? focal opacity. Streaky basilar opacities favored to represent?? atelectasis and/or scarring but nonspecific.?? Pleural spaces: Unchanged blunting of the bilateral costophrenic?? angles may be related to hyperventilatory changes versus basilar?? atelectasis/scarring versus trace/small pleural effusions,?? nonspecific. No pneumothorax.?? Heart/Mediastinum: Cardiomediastinal contours within normal limits.?? Vasculature: Vascular calcifications of the aortic arch with mild?? tortuosity of the descending thoracic aorta.?? Bones/joints: Mild multilevel thoracic spondylosis. No acute osseous?? finding.? IMPRESSION:?? 1. No focal/lobar consolidation.?? 2. Hyperinflation with unchanged chronic appearing coarsening of the?? interstitial markings.? Report signed by: Jayant Sol On 07/25/2022 ??20:20:15 ?? [3] [1]??CT Brain/Head Stroke Protocol; [employer]User, Generated 07/25/2022 11:11 EST [2]??CT Angio Brain and Neck; [employer]User, Generated 07/25/2022 11:13 EST [3]??XR Chest 1 View; [employer]User, Generated 07/25/2022 19:35 EST Electronically Signed on 07/26/22 04:29 AM Sang, Evie NURSE ANESTHETIST Toby Cao DO Discharge summary * Alan Holden MD: PERFORM Event Display: Discharge Summary Authored Date: [id number] PIO ZIMMERA :1935 Age:87 years Sex:Female Visit Date:07/25/2022 Primary Care Physician: Mirna SHEA, Adalid Gaspar MD Hospital Course The patient is a 87-year-old female who presented to the emergency department on 07/26/2022 with a chief complaint of being found unresponsive and weakness. ??Patient was found to have complete left-sided hemiparesis with left-sided neglect. ??CT scan of the brain was obtained and revealed large right middle cerebral artery infarct with no hemorrhage. ??CT angio of the head and neck was obtained and revealed occlusion of right middle cerebral artery near trifurcation with some distal reconstitution and a large right MCA infarct, 40% right ICA stenosis and 60% left ICA stenosis. ??They also recommended no intervention for the suspected occlusion due to the size of the stroke. ??Patient was not a thrombolytic candidate due to his size and age of the infarct. ??Patient was initially given rectal aspirin as she was also having dysphagia and inability to swallow however this started to improve as well. ??Speech and swallow evaluation was completed and they recommended dysphagia mechanical soft diet and she was able to take her pills. ??Aspirin was transition from rectal to oral 81 mg p.o. daily as well as atorvastatin 40 mg p.o. daily which is new medication for her. ??She was also started on metoprolol succinate 25 mg p.o. daily which will be prescribed upon discharge. ??PT and OT has been following her since her admission. ??Patient was also found to have a urinary tract infection growing E. coli in the urine culture and was treated accordingly and completed her antibiotic regimen. ??Patient also has a history of atrial fibrillation and with time to allow for healing and brain tissue to avoid hemorrhagic conversion patient may benefit from anticoagulation although she will be high risk of bleeds. ??At the time of discharge patient was stable to go to [facility] for continued residential, PT and OT. ??After discharge patient will require follow-up with her PCP within 1 week. ??Patient will also require follow-up with neurology within 1 to 2 weeks. Physical Exam Vitals & Measurements T:??36.9?C ??(Temporal Artery)?? TMIN:??36.7?C ??(Temporal Artery)?? TMAX:??37.2?C ??(Temporal Artery)?? HR:??94??(Peripheral)?? RR:??19?? BP:??152/106?? SpO2:??93%?? WT:??55??kg?? Pain Score:??0?? O2 Therapy:??Room air?? General:??Alert and oriented, frail-appearing female??no??acute distress Eye:??PERRL, EOMI,?Normal??conjunctiva, left-sided neglect HENT:??Normocephalic, clear tympanic membranes,?Normal?hearing, moist oral mucosa,?No??scleral icterus,?No??sinus tenderness Neck:??Supple, non-tender,?No??carotid bruits,?No??JVD,?No??lymphadenopathy Lungs:??Clear to auscultation and percussion,?Non-labored?respiration Heart:?Normal?rate,?Regular??rhythm,?No??murmur,?No??gallop,?N o??edema Abdomen:??Soft, non-tender, non-distended,?Normal?bowel sounds,?No??masses Musculoskeletal:?Normal?range of motion and strength,?No??tenderness,?No??swelling Skin:??Skin is warm, dry and pink,?No??rashes,?No??lesions Neurologic:??Awake, alert and oriented X??2,??patient with??left lower extremity weakness although improved today??approximately 2 out of 5, left upper extremity is unable to be moved, sensation intact Psychiatric:??Cooperative, appropriate mood and affect Medications Inpatient aspirin, 81 mg= 1 tab, Oral, Daily atorvastatin, 40 mg= 1 tab, Oral, With Evening Meal lidocaine 1% injectable solution, 5 mg= 0.5 mL, Intradermal, As Directed, PRN metoprolol extended release, 25 mg= 1 tab, Oral, Daily Normal Saline Flush, 10 mL, IV Push, every 12 hr ([facility]) ondansetron, 4 mg= 2 mL, IV Push, every 6 hr, PRN Tylenol, 650 mg= 2 tab, Oral, every 6 hr, PRN Home aspirin 81 mg oral tablet, chewable, 81 mg= 1 tab, Oral, Daily atorvastatin 40 mg oral tablet, 40 mg= 1 tab, Oral, With Evening Meal losartan 25 mg oral tablet, 25 mg= 1 tab, Oral, every evening metoprolol succinate 25 mg oral tablet, extended release, 25 mg= 1 tab, Oral, Daily Hampton-3 Fish Oil, 1 cap, Oral, Daily PreserVision AREDS 2 oral capsule, 1 cap, Oral, BID Ventolin HFA 90 mcg/inh inhalation aerosol, 2 puffs, Inhale, every 5 hr, PRN Vitamin D3 1000 intl units oral tablet, 62.5 mcg= 2.5 tab, Oral, Daily Social History Alcohol Current, Wine, Daily Electronic Cigarette/Vaping Electronic Cigarette Use: Never. Tobacco Former tobacco user Tobacco Use:. Discharge Plan Discharge planning greater than 30 minutes. 1.??Acute ischemic right MCA stroke??I63.511 The patient is a 87-year-old female who presented to the emergency department on 07/26/2022 with a chief complaint of being found unresponsive and weakness. ??Patient was found to have complete left-sided hemiparesis with left-sided neglect. ??CT scan of the brain was obtained and revealed large right middle cerebral artery infarct with no hemorrhage. ??CT angio of the head and neck was obtained and revealed occlusion of right middle cerebral artery near trifurcation with some distal reconstitution and a large right MCA infarct, 40% right ICA stenosis and 60% left ICA stenosis. ??They also recommended no intervention for the suspected occlusion due to the size of the stroke. ??Patient was not a thrombolytic candidate due to his size and age of the infarct. ??Patient was initially given rectal aspirin as she was also having dysphagia and inability to swallow however this started to improve as well. ??Speech and swallow evaluation was completed and they recommended dysphagia mechanical soft diet and she was able to take her pills. ??Aspirin was transition from rectal to oral 81 mg p.o. daily as well as atorvastatin 40 mg p.o. daily which is new medication for her. ??She was also started on metoprolol succinate 25 mg p.o. daily which will be prescribed upon discharge. ??PT and OT has been following her since her admission. ??Patient was also found to have a urinary tract infection growing E. coli in the urine culture and was treated accordingly and completed her antibiotic regimen. ??Patient also has a history of atrial fibrillation and with time to allow for healing and brain tissue to avoid hemorrhagic conversion patient may benefit from anticoagulation although she will be high risk of bleeds. ??At the time of discharge patient was stable to go to [facility] for continued residential, PT and OT. ??After discharge patient will require follow-up with her PCP within 1 week. ??Patient will also require follow-up with neurology within 1 to 2 weeks. 2.??UTI (urinary tract infection)??N39.0 3.??Atrial fibrillation with RVR??I48.91 4.??Febrile??R50.9 5.??NSTEMI (non-ST elevated myocardial infarction)??I21.4 6.??Unspecified dementia, mild, with anxiety??F03.A4 Orders: aspirin 81 mg oral tablet, chewable, 81 mg = 1 tab, Oral, Daily, # 30 tab, 0 Refill(s), Pharmacy: [id number], 165, cm, 07/25/22 14:26:00 EST, Height/Length Dosing, 57.2, kg, 07/25/22 14:26:00 EST, Weight Dosing atorvastatin, 40 mg = 1 tab, Oral, Tab, With Evening Meal for 30 days, First Dose: 08/01/22 17:30:00 EST, Stop Date: 08/31/22 17:29:00 EST, Physician Stop, Routine atorvastatin 40 mg oral tablet, 40 mg = 1 tab, Oral, With Evening Meal, # 30 tab, 0 Refill(s), Pharmacy: [id number], 165, cm, 07/25/22 14:26:00 EST, Height/Length Dosing, 57.2, kg, 07/25/22 14:26:00 EST, Weight Dosing metoprolol succinate 25 mg oral tablet, extended release, 25 mg = 1 tab, Oral, Daily, # 30 tab, 0 Refill(s), Pharmacy: [id number], 165, cm, 07/25/22 14:26:00 EST, Height/Length Dosing, 57.2, kg, 07/25/22 14:26:00 EST, Weight Dosing metoprolol extended release, 25 mg = 1 tab, Oral, Tab-ER, Daily for 30 days, First Dose: 08/01/22 18:00:00 EST, Stop Date: 08/31/22 17:59:00 EST, Physician Stop, Routine Discharge Activity Restrictions, As Instructed by Physical Therapy Discharge Diet Instruction, Regular home diet Other (please specify), Dysphagia, mechanical soft. Discharge Follow Up Instructions, 08/02/22 8:48:00 EST, When following are met: Alert and awake, Follow up with PCP within 1 week. Call for appointment Discharge Patient, 08/02/22 8:48:00 EST, [facility], [facility], SNF level 1 requires, residential, PT, OT and speech and swallow evaluation. All Diagnoses This Visit Acute ischemic right MCA stroke UTI (urinary tract infection) Atrial fibrillation with RVR Febrile NSTEMI (non-ST elevated myocardial infarction) Unspecified dementia, mild, with anxiety Patient Education Ischemic Stroke Follow Up With When Contact Information [facility], Adalid Gaspar MD Within [address] [phone] Additional Instructions: Medication Reconciliation New Prescription aspirin (aspirin 81 mg oral tablet, chewable)1 tab Oral (given by mouth) every day. Refills: 0. ?? atorvastatin (atorvastatin 40 mg oral tablet)1 tab Oral (given by mouth) With Evening Meal. Refills: 0. ?? metoprolol (metoprolol succinate 25 mg oral tablet, extended release)1 tab Oral (given by mouth) every day. Refills: 0. ?? Unchanged albuterol (Ventolin HFA 90 mcg/inh inhalation aerosol)2 Puffs Inhale (breathe in) every 5 hours as needed as needed for wheezing. ?? cholecalciferol (Vitamin D3 1000 intl units oral tablet)2.5 tab Oral (given by mouth) every day. ?? losartan (losartan 25 mg oral tablet)1 tab Oral (given by mouth) every evening. ?? multivitamin with minerals (PreserVision AREDS 2 oral capsule)1 Capsules Oral (given by mouth) 2 times a day. ?? omega-3 polyunsaturated fatty acids (Hampton-3 Fish Oil)1 Capsules Oral (given by mouth) every day. Electronically Signed on 08/02/22 08:59 AM Alan Holden MD Patient Care team information [facility] Address: Address: [address]
--- OUTSIDE RECORDS SUMMARY | 2023-03-22 18:14 | XMS_ITS | Continuity of Care Document ---
Author Name Unknown Organization [facility] Address [address] [place] [address] Care Team Providers Care Cabin Furnishings Installer Name Role Phone [facility], Adalid Gaspar Primary Care Physician Encounter [facility] Date(s): 12/18/22 - 12/18/22 [facility] [address] [place] [address] Discharge Disposition: Home or Self Care Attending [...] BID, # 180 tab, 3 Refill(s), Pharmacy: [id number], 165, cm, 07/25/22 14:26:00 EST, Height/Length Dosing, 57.2, kg, 07/25/22 14:26:00 EST, Weight Dosing Start Date: 10/18/22 Status: Ordered [place]-3 Fish Oil 1 cap, Oral, Daily, 0 [...] Confirmed Active Results Laboratory List Name Date Basic Metabolic Panel 12/18/22 Most recent to oldest [Reference Range]: 1 BUN [7-18 mg/dL] 28 mg/dL *HI* (12/18/22 9:09 AM) Glucose Level [74-106 mg/dL] 86 mg/dL (12/18/22 9:09 AM) Potassium Level [3.5-5.1 mmol/L] 4.4 mmo l/L (12/18/22 9:09 AM) Sodium Level [136-145 mmol/L] 141 mmol/L (12/18/22 9:09 AM) Calcium Level [8.5-10.1 mg/dL] 9.4 mg/dL (12/18/22 9:09 AM) CO2 [21-32 mmol/L] 29 mmol/L (12/18/22 9:09 AM) eGFR Non-AA [>=60] 70 (12/18/22 9:09 AM) eGFR AA [>=60] 70 (12/18/22 9:09 AM) Chloride Level [98-107 mmol/L] 106 mmol/ L (12/18/22 9:09 AM) Creatinine Level [0.55-1.02 mg/dL] 0.82 mg/dL (12/18/22 9:09 AM) Social History Social History Type Response Tobacco Former tobacco user Tobacco Use:. Sex Female Patient Care team information Care Team Personnel Name: Mirna [facility], Adalid aGspar MD Position: No Access Member Role: Primary Care Physician Address: Address: [address] Care Team Related Persons Name: KIMO MOISE Address: Home Name: SHONNA EASTON Address: Home Name: ABHISHEK JACKSON Name: BABITA ROGER Address: Home
--- OUTSIDE RECORDS SUMMARY | 2023-03-22 18:14 | XMS_ITS | Continuity of Care Document ---
Author Name Unknown Organization [facility] Address [address] [place] [address] Care Team Providers Care Exercise Scientist Name Role Phone [facility]au [facility], Adalid Gaspar Primary Care Physician Encounter [facility] Date(s): 09/12/22 - 09/12/22 [facility] [address] [place] [address] Discharge Disposition: Home or Self Care Attending Physician: Giselle Friedman MD Admitting Physician: Giselle Friedman MD Referring Physician: Giselle Friedman MD Allergies, Adverse Reactions, Alerts Substance Reaction [...] Daily, # 30 tab, 0 Refill(s), Pharmacy: [facility], 165, cm, 07/25/22 14:26:00 EST, Height/Length Dosing, 57.2, kg, 07/25/22 14:26:00 EST, Weight Dosing Start Date: 08/02/22 Status: Ordered [place]-3 Fish Oil 1 cap, Oral, Daily, 0 [...] team information Care Team Personnel Name: Mirna Adalid EWING MD Position: No Access Member Role: Primary Care Physician Address: Address: [place] [address]- Care Team Related Persons Name: KIMO MOISE Address: Home Name: SHONNA EASTON Address: Home Name: ABHISHEK JACKSON Name: BABITA ROGER Address: Home
--- OUTSIDE RECORDS SUMMARY | 2023-03-22 18:14 | XMS_ITS | Continuity of Care Document ---
Author Name Unknown Organization [facility] Address [address] [place] [address] Care Team Providers Care Manager Of Pharmacy Name Role Phone Primeau IPHCAdalid Primary Care Physician [place]counter [facility] Date(s): 07/22/22 - 07/23/22 [facility] [address] [place] [address] Encounter Diagnosis Myocardial infarction acute(Discharge Diagnosis) - 07/22/22 Discharge Disposition: Discharge/Transfer - Other Type of Inst Attending Physician: Miguel Munguia MD Admitting Physician: Miguel Munguia MD Allergies, Adverse Reactions, Alerts Substance Reaction Severity Status tetanus-diphth toxoids (Td) adult/adol Un known Active Assessment and Plan Extracted from: Title:Clinical Document Author:Miguel Munguia Ra, MD Date:07/23/22 5:55 AM: Patient has not had any recurrent chest pains overnight, she is a little nauseous this morning but otherwise is quite comfortable and smiling. Zofran given. Repeat troponin has gone up to the 6000 range, still awaiting transportation to [facility] which is scheduled for 8:00 AM. Functional Status 07/22/22 Family Member Travel History No recent t ravel Recent Travel History No recent travel Other exposure to Infectious Disease Non e Medications losartan 25 mg oral tablet 0 Refill(s) Start Date: 07/23/22 Status: Ordered Results Laboratory List Name Date Troponin-I 07/23/22 PT/ INR 07/23/22 PTT 07/23/22 Troponin-I 07/23/22 .Manual Differential ([facility]) 07/22/22 CBC w/ Diff 07/22/22 Comprehensive Metabolic Panel 07/22/22 NT- Pro BNP 07/22/22 SARS-CoV-2 (COVID-19)/Flu/RSV (GeneXpert ) 07/22/22 Troponin-I 07/22/22 PTT 07/22/22 Most recent to oldest [Reference Range]: 1 2 3 WBC [5.0-10.0 x10^3/mcL] 11.6 x10^3/mcL *HI* (07/22/22 10:01 PM) RBC [4.1-5.3 x10^6/mcL] 4.4 x10^6/mcL (07/22/22 10:01 PM) Segs Man [40-75 %] 76 % *HI* (07/22/22 10:01 PM) Lymph Man [20-50 %] 13 % *LOW* (07/22/22 10:01 PM) [place] Man 7 % *NA* (07/22/22 10:01 PM) Eos Man 2 % *NA* (07/22/22 10:01 PM) Prothrombin Time [9.0-11.0 seconds] 10.1 seconds 1 (07/23/22 4:10 AM) INR 1.0 *NA* (07/23/22 4:10 AM) BUN [7-18 mg/dL] 26 mg/dL *HI* (07/22/22 10:01 PM) Glucose Level [74-106 mg/dL] 162 mg/dL *HI* (07/22/22 10:01 PM) Potassium Level [3.5-5.1 mmol/L] 3.9 mmol/L (07/22/22 10:01 PM) MCV [80.0-96.0] 97.3 *HI* (07/22/22 10:01 PM) RBC Morph Normal (07/22/22 10:01 PM) AST [15-37 unit/L] 23 unit/L (07/22/22 10:01 PM) ALT [14-59 unit/L] 20 unit/L (07/22/22 10:01 PM) MCHC [31.0-35.0 g/dL] 33.0 g/dL (07/22/22 10:01 PM) Troponin-I [0.0-51.4 pg/mL] 6172.3 pg/mL 2 *CRIT* (07/23/22 5:59 AM) 6324.6 pg/mL 3 *CRIT* (07/23/22 2:00 AM) 4251.1 pg/mL 4 *CRIT* (07/22/22 10:01 PM) Sodium Level [136-145 mmol/L] 137 mmol/L (07/22/22 10:01 PM) Hct [37.0-47.0 %] 43.3 % (07/22/22 10: PM) Partial Thromboplastin Time [22-35 seconds] 45 seconds *HI* (07/23/22 4:10 AM) 25 seconds (07/22/22 10:00 PM) Calcium Level [8.5-10.1 mg/dL] 9.6 mg/dL (07/22/22 10:01 PM) Albumin Level [3.4-5.0 g/dL] 3.7 g/dL (07/22/22 10:01 PM) Protein Total [6.4-8.2 g/dL] 7.5 g/dL (07/22/22 10:01 PM) MCH [26.0-32.0 pg] 32.1 pg *HI* (07/22/22 10:01 PM) Bilirubin Total [0.2-1.0 mg/dL] 0.3 mg/dL (07/22/22 10:01 PM) Hgb [12.0-16.0 g/dL] 14.3 g/dL (07/22/22 10:01 PM) Alk Phos [46-146 unit/L] 132 unit/L (07/22/22 10:01 PM) Band Man [0-5 %] 1 % (07/22/22 10:01 PM) Platelets [130-450 x10^3/mcL] 268 x10^3/mcL (07/22/22 10:01 PM) CO2 [21-32 mmol/L] 26 mmol/L (07/22/22 10:01 PM) eGFR Non-AA [>=60] 42 *LOW* (07/22/22 10:01 PM) eGFR AA [>=60] 42 *LOW* (07/22/22 10:01 PM) NT-proBNP [0-450 pg/mL] 309 pg/mL (07/22/22 10:01 PM) Chloride Level [98-107 mmol/L] 103 mmol/L (07/22/22 10:01 PM) RDW-CV [11.7-17.0 %] 12.2 % (07/22/22 10:01 PM) Abs Neut Man 8.9 x10^3/mcL *NA* (07/22/22 10:01 PM) Creatinine Level [0.55-1.02 mg/dL] 1.26 mg/dL *HI* (07/22/22 10:01 PM) Employed in healthcare? Unknown *NA* (07/22/22 10:01 PM) Symptomatic as defined by CDC? Unknown *NA* (07/22/22 10:01 PM) Hospitalized due to COVID-19? Unknown *NA* (07/22/22 10:01 PM) In ICU? Unknown *NA* (07/22/22 10:01 PM) Group care resident? Unknown *NA* (07/22/22 10:01 PM) status? Unknown *NA* (07/22/22 10:01 PM) SARS-CoV-2(Covid19)PCR(GXper t COVFLURSV) [Negative] Negative (07/22/22 10:01 PM) Flu A (GXpert COVFLURSV) [Negative] Negative (07/22/22 10:01 PM) RSV (GXpert COVFLURSV) [Negative] Negative (07/22/22 10:01 PM) Flu B (GXpert COVFLURSV) [Negative] Negative (07/22/22 10:01 PM) Baso Man [0-1 %] 1 % (07/22/22 10:01 PM) 1Result Comment: Sample appears hemolyzed, some results may be affected 2Result Comment: Called to Rozina Bell RN at 07/23/2022 06:52:30 EST EMB 3Result Comment: Called to Albin Machado RN at 07/23/2022 02:46:04 EST EMB 4Result Comment: Called to Albin Machado RN at 07/22/2022 22:44:04 EST EMB Vital Signs Most recent to oldest [Reference Range]: 1 2 3 Temperature Temporal Artery [36-38 Deg C] 36.7 Deg C (07/22/22 9:36 PM) Peripheral Pulse Rate [60-100 bpm] 75 bpm (07/23/22 7:39 AM) 72 bpm (07/23/22 7:12 AM) 73 bpm (07/23/22 6:30 AM) Heart Rate Monitored [60-100 bpm] 75 bpm (07/23/22 7:39 AM) 72 bpm (07/23/22 7:12 AM) 72 bpm (07/23/22 6:30 AM) Respiratory Rate [12-24 br/min] 19 br/min (07/23/22 7:39 AM) 21 br/min (07/23/22 7:12 AM) 19 br/min (07/23/22 6:30 AM) Blood Pressure [90-140/60-90 mmHg] 116/74mmHg (07/23/22 7:39 AM) 111/59mmHg (07/23/22 7:12 AM) 115/69mmHg (07/23/22 6:30 AM) Mean Arterial Pressure, Cuff [65-140 mmHg] 88 mmHg (07/23/22 7:39 AM) 76 mmHg (07/23/22 7:12 AM) 84 mmHg (07/23/22 6:30 AM) Weight 57.20 kg (07/22/22 9:36 PM) Weight Dosing 57.20 kg (07/22/22 9:46 PM) Height 165.000 cm (07/22/22 9:36 PM) Height/Length Dosing 165.000 cm (07/22/22 9:46 PM) Body Mass Index 21.000 kg/m2 (07/22/22 9:36 PM) Social History Social History Type Response Tobacco Former tobacco user Tobacco Use:. Sex Female EKG study * Taylor Quinn: PERFORM Event Display: Electrocardiogram EKG Authored Date: [id number] Physician Emergency department Note * Miguel Munguia MD: PERFORM Event Display: ED Note Physician Authored Date: [id number] 5:55 AM: Patient has not had any recurrent chest pains overnight, she is a little nauseous this morning but otherwise is quite comfortable and smiling. Zofran given. Repeat troponin has gone up to the 6000 range, still awaiting transportation to [facility] which is scheduled for 8:00 AM. Electronically Signed on 07/23/22 05:57 AM Miguel Munguia MD * Miguel Munguia MD: PERFORM Event Display: ED Note Physician Authored Date: [id number] PABLO ZIMMER :1935 Age:87 years Sex:Female Visit Date:07/22/2022 Primary Care Physician: Mirna [facility], Adalid Gaspar MD Basic Information Time Seen: Miguel Munguia MD / 07/22/2022 21:46 Chief Complaint PT lost best friend last Saturday. Was downstairs, went ??upstairs to greet friends, began having chest pain, vomited x 1, arms felt heavy. Nitro enroute. Currently pain free History Of Present Illness: Pleasant 87-year-old female comes in by ambulance for evaluation of a bout of chest pain and nausea??at home this evening.?? 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 Shehas had some dyspnea on exertion recently and she had an echocardiogram??on May 17 of this yearwhich was unremarkable. ??Because of impaired memory she had??an MRI of her head on June 27 also which was unremarkable.?? She lives by herself and this evening some friends came by to??see her and she was in the basement,??she hurried up the stairs??and developed some chest pains and arm heaviness and nausea.?? Ambulance was called and EMT gave her 1 nitro and 325 of aspirin and the pain resolved completely. ??She is asymptomatic here.?? EKG per this was concerning for STEMI.?? Patient hasno previous history of coronary artery disease.?According to [facility]??she is a DNR.?? Has not been sick recently. Review of Systems: Constitutional:??no??fever,??no??chills,??no??sweats,??no??weakness Skin:??no??Jaundice,??no??rash,??no??lesions,??no??petechiae ENMT:??no??ear pain,??no??sore throat,??no??congestion,??no??hoarseness Respiratory:??no??shortness of breath??however recently has had some dyspnea on exertion Cardiovascular:??See HPI Gastrointestinal:??no??nausea,??no??vomiting,??no??diarrhea,??no abdominal pain but see HPI Genitourinary:??No complaints voiced Musculoskeletal:??no??back pain,??no??trauma Neurologic:??no??headache,??no??dizziness,??no??numbness,??no??weakness Psychiatric:??no??sleeping problems,??no??irritability,??no??mood swings/depression Heme/Lymph:??no??bleeding tendency,??no??bruising tendency,??no??petechiae,??no??swollen nodes Allergy/Immunologic:??no??seasonal allergies,??no??food allergies,??no??recurrent infections,??no??impaired immunity Additional ROS info: Except as noted in the above Review of Systems and in the History of Present Illness all other systems have been reviewed and are negative or noncontributory.?? Physical Exam Vitals & Measurements T:??36.7?C ??(Temporal Artery)?? HR:??94??(Peripheral)?? HR:??93??(Monitored)?? RR:??20?? BP:??120/75?? SpO2:??90%?? HT:??165.000??cm?? WT:??57.20??kg?? BMI:??21.000?? O2 Therapy:??Room air?? General:??alert,??no acute distress.?? Patient is oriented to time??place and person, no acute distress, asymptomatic, skin is warm and dry. Skin:??warm,??dry. Head:??no??trauma,??normocephalic. Neck:??trachea??midline,??no??adenopathy,??no??tenderness. Eye:??normal??conjunctiva, sclera??clear. Cardiovascular:??regular??rate and rhythm,??normal??peripheral perfusion. Respiratory: lungs??CTA, respirations??non-labored. Chest wall:??no??deformity. Gastrointestinal:??soft,??non distended,??no??tenderness,??no??guarding. Extremities:??no??deformity,??no??trauma.?? No signs of DVT. Neurological:??oriented??x 4, LOC??appropriate for age, ??speech??normal. Psychiatric:??cooperative, affect??appropriate for age,?? Medical Decision Making: Differential diagnosis includes myocardial infarction, unstable angina, ?? The patient is asymptomatic on arrival. ?? Troponin significantly elevated here. ??Patient not having pain.?? She already got aspirin,??after troponin was seen??she was heparinized and I gave us metoprolol titrate.?? According to EKG I did not??think??patient met lytic criteria. ??We will reach out to cardiology. ?? Spoke with [facility] [place] [place]. Muhammad (?sp). ??Patient is kindly excepted in transfer under the??care of Dr. Reza.?? Plavix 300 mg given as recommended. ??Eap Specialist agrees that the patient does not meet lytic criteria.?? Patient pain-free here. Procedure Total critical care time: Approximately _45__ minutes Due to a high probability of [...] of separately billable procedures and treating other patients. Please see MDM section and the rest of the note for further information on patient assessment and treatment. No Qualifying Data Assessment/Plan 1.??Myocardial infarction acute??I21.9 Ordered: Transfer to Another Facility, 07/22/22 23:52:00 EST, [facility]. ?? Problem List/Past Medical History Ongoing No qualifying data Historical No qualifying data Medication Administration Given heparin, 700 units/hr, IV heparin, 3400 units, IV metoprolol tartrate, 25 mg, Oral Plavix, 300 mg, Oral Allergies tetanus-diphth toxoids (Td) adult/adol Social History Alcohol Current, Wine, Daily Electronic Cigarette/Vaping Electronic Cigarette Use: Never. Tobacco Former tobacco user Tobacco Use:. Diagnostic Results ECG EKG as interpreted by me shows sinus rhythm at a rate of 96 bpm with occasional isolated PVCs.?? Nonspecific ST segments in the lateral leads that could be early repolarization,??could relate some ischemia but does not meet lytic criteria. Diagnostic Study Interpretation: Dust x-ray shows some bibasilar haziness, question atelectasis. Lab Results CBC and Differential?? LATEST RESULTS?? WBC?? 07/22/22 22:01?? 11.6 ??High?? RBC?? 07/22/22 22:01?? 4.4?? Hgb?? 07/22/22 22:01?? 14.3?? Hct?? 07/22/22 22:01?? 43.3?? MCV?? 07/22/22 22:01?? 97.3 ??High?? MCH?? 07/22/22 22:01?? 32.1 ??High?? MCHC?? 07/22/22 22:01?? 33.0?? RDW-CV?? 07/22/22 22:01?? 12.2?? Platelets?? 07/22/22 22:01?? 268?? Segs Man?? 07/22/22 22:01?? 76 ??High?? Lymph Man?? 07/22/22 22:01?? 13 ??Low?? [place] Man?? 07/22/22 22:01?? 7?? Eos Man?? 07/22/22 22:01?? 2?? Baso Man?? 07/22/22 22:01?? 1?? Band Man?? 07/22/22 22:01?? 1?? Abs Neut Man?? 07/22/22 22:01?? 8.9?? RBC Morph?? 07/22/22 22:01?? Normal? Coagulation?? LATEST RESULTS?? Partial Thromboplastin Time?? 07/22/22 22:00?? 25? Routine Chemistry?? LATEST RESULTS?? Sodium Level?? 07/22/22 22:01?? 137?? Potassium Level?? 07/22/22 22:01?? 3.9?? Chloride Level?? 07/22/22 22:01?? 103?? CO2?? 07/22/22 22:01?? 26?? Alk Phos?? 07/22/22 22:01?? 132?? AST?? 07/22/22 22:01?? 23?? ALT?? 07/22/22 22:01?? 20?? BUN?? 07/22/22 22:01?? 26 ??High?? Glucose Level?? 07/22/22 22:01?? 162 ??High?? Creatinine Level?? 07/22/22 22:01?? 1.26 ??High?? eGFR AA?? 07/22/22 22:01?? 42 ??Low?? eGFR Non-AA?? 07/22/22 22:01?? 42 ??Low?? Calcium Level?? 07/22/22 22:01?? 9.6?? Protein Total?? 07/22/22 22:01?? 7.5?? Albumin Level?? 07/22/22 22:01?? 3.7?? Bilirubin Total?? 07/22/22 22:01?? 0.3? Cardiac Isoenzymes?? LATEST RESULTS?? Troponin-I?? 07/22/22 22:01?? 4251.1 ??Critical?? NT-proBNP?? 07/22/22 22:01?? 309? Infectious Disease?? LATEST RESULTS?? Employed in healthcare??? 07/22/22 22:01?? Unknown?? Symptomatic as defined by CDC??? 07/22/22 22:01?? Unknown?? Hospitalized due to COVID-19??? 07/22/22 22:01?? Unknown?? In ICU??? 07/22/22 22:01?? Unknown?? Group care resident??? 07/22/22 22:01?? Unknown?? status??? 07/22/22 22:01?? Unknown?? SARS-CoV-2(Covid19)PCR(GXpert COVFLURSV)?? 07/22/22 22:01?? Negative?? Flu A (GXpert COVFLURSV)?? 07/22/22 22:01?? Negative?? Flu B (GXpert COVFLURSV)?? 07/22/22 22:01?? Negative?? RSV (GXpert COVFLURSV)?? 07/22/22 22:01?? Negative? Electronically Signed on 07/22/22 11:53 PM Miguel Munguia MD Emergency department Note * Taylor Quinn: PERFORM Event Display: ED Notes Authored Date: * Tamiko Cardenas: PERFORM Event Display: ED Notes Authored Date: * Tamiko Cardenas: PERFORM Event Display: ED Notes Authored Date: Patient Care team information Personnel Name: Mirna Adalid EWING MD Address: Address: [address]
== END 2023-03-22 18:13 | disposition home or self-care (01) ==
LOC: NCHCN 18:12
PROVIDERS: PCP Internal Medicine; Visit Provider Internal Medicine
DX: R35.0 Frequency of micturition (principal)
CPT/HCPCS: 87086

== ENCOUNTER 2023-03-28 15:03 | Outpatient (REF) | payer MEDICARE, MEDICAID, SELFPAY ==
[2023-03-28 19:34] LABS: Abs Immature Grans 0.03 10^3/uL (0.0-0.06); Absolute Basophil Count 0.06 10^3/uL (0.0-0.2); Absolute Eosinophil Count 0.61 10^3/uL (0.0-0.7); Absolute Lymphocyte Count 1.58 10^3/uL (1.2-3.4); Absolute Monocyte Count 0.87 10^3/uL (0.1-0.8); Absolute Neutrophil Count 5.38 10^3/uL (1.2-6.7); Basophils % 0.7; Eosinophils % 7.2; Immature Grans % 0.4; Lymphocytes % 18.5; MCH 31.8 pg (27.0-33.0); MCHC 33.3 % (32.0-36.0); MCV 95 fL (80-95); MPV 9.9 fL (8.0-11.0); Monocytes % 10.2; Platelet Count 258 10^3/uL (130-400); RBC 4.09 10^6/uL (3.93-5.22); RDW 11.9 % (11.7-14.6); RDW-SD 41.6 fL; WBC 8.53 10^3/uL (4.4-10.8)
[2023-03-28 19:46] LABS: ALT 35 U/L (14-59); Anion Gap 10.5 mmol/L (3-11); BUN 30 mg/dL (7-18); CO2 24.5 mmol/L (21.0-32.0); CREATININE 0.9 mg/dL (0.55-1.02); Calcium 9.4 mg/dL (8.5-10.1); Chloride 105 mmol/L (98-107); Creatine Kinase 78 U/L (26-192); Estimated GFR 61.87 (mL/min/1.73m2); Glucose 108 mg/dL (74-106); Potassium 4.2 mmol/L (3.5-5.1); Sodium 140 mmol/L (136-145)
[2023-03-28 19:58] LABS: Calculated LDL 45 mg/dL (<100); Cholesterol 130 mg/dL (<200); HDL Cholesterol 64 mg/dL (40-60); Triglyceride 105 mg/dL (<150)
== END 2023-03-28 15:04 | disposition home or self-care (01) ==
LOC: NCHCN 15:03
PROVIDERS: PCP Internal Medicine; Visit Provider Internal Medicine
DX: E78.5 Hyperlipidemia, unspecified (principal); Z79.82 Long term (current) use of aspirin; R79.89 Other specified abnormal findings of blood chemistry
CPT/HCPCS: 80048; 80061; 82550; 84460; 85025

== ENCOUNTER 2023-04-17 16:29 | Outpatient (REF) | payer MEDICARE, MEDICAID, SELFPAY ==
[2023-04-17 20:50] LABS: HCT 38.6 % (36.0-46.0); HGB 12.7 g/dL (11.2-15.7); MCH 31.1 pg (27.0-33.0); MCHC 32.9 % (32.0-36.0); MCV 94 fL (80-95); MPV 9.4 fL (8.0-11.0); Platelet Count 429 10^3/uL (130-400); RBC 4.09 10^6/uL (3.93-5.22); RDW 11.8 % (11.7-14.6); RDW-SD 40.2 fL; WBC 9.78 10^3/uL (4.4-10.8)
== END 2023-04-17 16:30 | disposition home or self-care (01) ==
LOC: NCHCN 16:29
PROVIDERS: PCP Internal Medicine; Visit Provider Nurse Practitioner Family
DX: M62.838 Other muscle spasm (principal); D75.838 Other thrombocytosis
CPT/HCPCS: 85027

== ENCOUNTER 2023-04-19 16:04 | Outpatient (REF) | payer MEDICARE, MEDICAID, SELFPAY ==
[2023-04-19 18:46] LABS: Bilirubin Negative (Negative); Blood Negative (Negative); Clarity Cloudy (Clear); Glucose Negative (Negative); Ketones Negative (Negative); Leukocyte Esterase Negative (Negative); Nitrite Negative (Negative); Urobilinogen 0.2 mg/dL (Up to 0.2); pH 5.5 (5-8)
== END 2023-04-19 16:05 | disposition home or self-care (01) ==
LOC: NCHCN 16:04
PROVIDERS: PCP Internal Medicine; Visit Provider Nurse Practitioner Family
DX: M62.838 Other muscle spasm (principal); G81.90 Hemiplegia, unspecified affecting unspecified side
CPT/HCPCS: 81003

== ENCOUNTER 2025-07-09 14:56 | Outpatient (REF) | payer MEDICARE, MEDICAID, SELFPAY | END 2025-07-09 14:57 | disposition home or self-care (01) | LOC: NCHCN 14:56 | PROVIDERS: PCP Internal Medicine; Visit Provider Nurse Practitioner | DX: R30.0 Dysuria (principal) | CPT/HCPCS: 87077; 87086; 87186 ==